=== PATIENT | female | born 1960 | race Caucasian/White ===

== ENCOUNTER → 2016-05-12 | Outpatient (CLI) | payer OTHER ==
--- NOTE | 2016-05-12 13:31 | MR ---
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 There is no hemorrhage or hydrocephalus. The postop changes to the left temporal lobe are again noted, extensive white matter demyelination compatible with leukomalacia , possible post radiation change as well as probable chronic small vessel ischemic changes are stable . Ex vacuo phenomenon of the left lateral ventricle is again noted. The corpus callosum, pituitary, c ervical medullary junction, cerebellopontine angles are stable. The orbits show a symmetric appearanc e. No abnormal enhancement following contrast administration. IMPRESSION: Stable exam, postop and posttreatment changes.
== END | disposition home or self-care (01) ==
LOC: RADMRIMAIN 08:05
DX: C71.2 Malignant neoplasm of temporal lobe (principal); Z98.890 Other specified postprocedural states
CPT/HCPCS: 70553; A9577

== ENCOUNTER 2016-08-13 11:39 | Inpatient (IN) | payer OTHER ==
[2016-08-13] MEDS ORDERED: HYDROmorphone 2 MG/ML 1 ML SYRINGE IVP PRN (13:27)
[2016-08-13] MEDS ORDERED: SODIUM CHLORIDE 0.9% 1,000 ML IV SCH (13:30)
[2016-08-13] MEDS ORDERED: SODIUM CHLORIDE 0.9% 500 ML IV ONE (14:51)
[2016-08-13 14:52] LABS: Basophils % (A) 0 %; CH 32.6; Eosinophils # (A) 0.1 k/uL (0-0.7); Eosinophils % (A) 1 %; HCT 40.8 % (34.0-46.0); HDW 2.32; HGB 13.6 gm/dL (11.4-16.0); Luc # (Auto) 0.16; Luc % (Auto) 2; Lymphocytes # (A) 1.7 k/uL (1.0-4.8); Lymphocytes % (A) 20 %; MCHC 33.3 g/dL (31.0-37.0); MCV 96.3 fL (80.0-100.0); Mean Platelet Volume 7.8; Monocytes # (A) 0.5 k/uL (0-1.0); Monocytes % (A) 6 %; Neutrophils % (A) 71 %; RBC 4.24 m/uL (3.80-5.40); WBC 8.4 k/uL (3.8-10.6); WBC (Perox) 9.06
[2016-08-13 14:53] LABS: INR 1.1 (<1.1); Prothrombin Time 11.3 sec (9.0-12.0)
[2016-08-13 15:01] LABS: ALT 26 U/L (9-52); AST 24 U/L (14-36); Alkaline Phosphatase 68 U/L (38-126); Anion Gap 11 mmol/L; Blood Urea Nitrogen 16 mg/dL (7-17); Calcium 10.1 mg/dL (8.4-10.2); Carbon Dioxide 24 mmol/L (22-30); Chloride 106 mmol/L (98-107); Glucose 106 mg/dL (74-99); Non-African American GFR(MDRD) >60 (>60 ml/min/1.73 sqM); Potassium 4.2 mmol/L (3.5-5.1); Sodium 141 mmol/L (137-145); Total Bilirubin 1.6 mg/dL (0.2-1.3); Total Protein 7.4 g/dL (6.3-8.2)
[2016-08-13] MEDS ORDERED: BACLOFEN 10 MG TAB PO PRN (15:05)
--- NOTE | 2016-08-13 15:11 | XR ---
EXAMINATION TYPE: XR Hip Complete LT DATE OF EXAM: 08/13/2016 12:13 PM CLINICAL HISTORY: Fall injury yesterday with left hip pain. TECHNIQUE: AP and frogleg views of the left hip are obtained. COMPARISON: None. FINDINGS: There is an acute subcapital fracture through proximal left femur with slight impaction of distal fracture fragment. No hip joint dislocation is seen. There is loss of normal spherical shape present in the femoral head. There are scattered left-sided pelvic phleboliths. IMPRESSION: There is acute impacted subcapital fracture left proximal femur. (Initial encounter closed type post traumatic fracture) Results communicated to ordering physician as requested at time of dictation. A Document Only message has been documented for Frederick Brandt MD in the [facility] Result system on 08/13/2016 12:17 PM, Message ID [id number].
[2016-08-13] MEDS: DEXTROSE 5%-0.45% NACL 1,000 ML IV SCH (15:47)
[2016-08-13] MEDS: FAMOTIDINE 20 MG/2 ML VIAL IV SCH ×2 (15:47→21:04)
[2016-08-13 19:16] LABS: Amorphous Sediment,Urine Occasional /hpf; Appearance,Urine Cloudy (Clear); Bacteria,Urine Occasional /hpf; Bilirubin,Urine Negative (Negative); Glucose,Urine (UA) Negative (Negative); Ketones,Urine Negative (Negative); Leukocyte Esterase,Urine Trace (Negative); Mucus,Urine Rare /hpf; Nitrite,Urine Positive (Negative); PH, Urine 6.5 (5.0-8.0); Particle Count 88298; Protein,Urine Negative (Negative); RBC,Urine 2 /hpf (0-5); Specific Gravity,Urine 1.012 (1.001-1.035); UA Billing (MACRO vs. MICRO) MICRO; Urobilinogen,Urine <2.0 mg/dL (<2.0); WBC,Urine 10 /hpf (0-5)
--- NOTE | 2016-08-13 19:37 | XR ---
EXAMINATION TYPE: XR chest 1V DATE OF EXAM: 08/13/2016 7:33 PM COMPARISON: NONE HISTORY: Hip fracture. Preop. TECHNIQUE: Single frontal view of the chest is obtained. FINDINGS: There is no heart failure nor confluent pneumonic infiltrate. There are no hilar masses. C ostophrenic angles are clear. IMPRESSION: No active cardiopulmonary disease.
--- NOTE | 2016-08-13 20:40 | HP ---
DATE OF ADMISSION: 08/13/2016 CHIEF COMPLAINT: Fall with pain in the left hip. HISTORY OF PRESENT ILLNESS: This is the first known admission to this hospital for this 56-year-old white female who was treated in the past for malignant neoplasm of brain. She was treated in 1999 and she has been stable and in remission since. She apparently slipped on some water in her kitchen the night before coming in and presented to the office with pain in the left hip, but she was ambulating. She is a little bit difficult to evaluate because of her previous neoplasm. However, in the office the hip was quite irritable. X-rays and did not rule out with certainty a fracture left hip and she was sent to the hospital for further films where it was determined that she did indeed, have a fracture of that hip and she was admitted. REVIEW OF SYSTEMS: She has had no fever, chills, headache, change in her neurologic status, head injuries, difficulty with vision or hearing, cough, hemoptysis, no chest pain or heart disease, hypertension, abdominal pain, nausea, vomiting, melena, renal disease, hematuria, diabetes, etc. Past medical history, family history, personal and social histories reveals SHE IS ALLERGIC TO TEGRETOL AND DILANTIN. MEDICATIONS: She is on: 1. Requip 0.25 at night. 2. Baclofen 10 mg at night. 3. Lipitor 20 mg once a day. 4. Vitamin D 50,000 units once a week. The only surgery she has had was for glioblastoma in 1999. She has had 4 pregnancies and 4 children. She does not smoke or drink. PHYSICAL EXAMINATION: Blood pressure 100/70, pulse 84, respirations 16. She is afebrile. GENERAL: She appeared to be slightly pale and in no acute distress. Skin was dry and lymph nodes not enlarged. Head, ears, eyes, nose, mouth, and throat were normal. NECK: Neck veins not distended. Carotids normal. CHEST: Clear. CARDIAC: Normal sinus rhythm with no extra sounds. ABDOMEN: Soft and nontender. The left hip was irritable. EXTREMITIES: Otherwise normal. NEUROLOGICAL: Speech was slowed and she had generalized weakness, but she otherwise is intact. IMPRESSION: 1. Fracture of the left hip. 2. Status post surgical removal of the glioblastoma in 1999. 3. Hyperlipidemia. 4. Hypo( ). PLAN: 1. Bed rest. 2. IV fluids. 3. Orthopedic consult.
[2016-08-13] MEDS: HYDROcodone/APAP 5-325MG 1 EACH TAB PO PRN (21:03)
[2016-08-13] MEDS: POLYETHYLENE GLYCOL 3350 17 GM POWD.PACK PO SCH (21:04)
[2016-08-13] MEDS: ONDANSETRON 4 MG/2 ML VIAL IVP PRN (21:04)
[2016-08-14] MEDS: HYDROmorphone 1 MG/ML 1 ML SYRINGE IVP PRN ×2 (05:19→13:45)
[2016-08-14] MEDS: DEXTROSE 5%-0.45% NACL 1,000 ML IV SCH ×2 (05:22→14:09)
[2016-08-14] MEDS ORDERED: ceFAZolin 1,000 MG VIAL ONE (08:12)
[2016-08-14] MEDS ORDERED: LACTATED RINGERS 1,000 ML IV ONE (08:12)
[2016-08-14] MEDS ORDERED: KETAMINE 10 MG/ML 20 ML VIAL ONE (08:12)
[2016-08-14] MEDS ORDERED: MIDAZOLAM 2 MG/2 ML VIAL ONE (08:12)
[2016-08-14] MEDS ORDERED: ceFAZolin 1,000 MG in SODIUM CHLORIDE 0.9% 1,000 ML IRRIGATION ONE (08:35)
[2016-08-14] MEDS ORDERED: SODIUM CHLORIDE 0.9% 100 ML with ceFAZolin 2,000 MG IV ONE ×2 (08:35)
[2016-08-14] MEDS: POLYETHYLENE GLYCOL 3350 17 GM POWD.PACK PO SCH ×2 (09:02→19:53)
[2016-08-14] MEDS: FAMOTIDINE 20 MG/2 ML VIAL IV SCH ×2 (09:02→19:53)
--- NOTE | 2016-08-14 09:15 | CONS ---
DATE OF CONSULTATION: August 13, 2016. REASON FOR CONSULTATION: Left hip fracture. HISTORY: Funmi is a very pleasant 56-year-old female. I visit her at the bedside. Her was present as well. The previous evening on August 12, 2016 around 7:00 in the evening she fell onto her left hip. She did have quite a bit of pain. She did not immediately seek medical attention. She presented to Dr. Brandt's office the next morning the morning of August 13. X-rays were taken in his office. She was found to have a femoral neck fracture and she was then admitted to the hospital. We were consulted for management of her hip fracture. She is resting comfortably. She denies any pain other than the left hip. She is an independent ambulator. She does have a history of cerebral palsy. PAST MEDICAL HISTORY: Cerebral palsy. History of malignant neoplasm of the brain treated in 1999. She has been stable and in remission since. PAST SURGICAL HISTORY: Denies. MEDICATIONS: Include: 1. Requip. 2. Baclofen. 3. Lipitor. 4. Vitamin D. PHYSICAL EXAMINATION: She is afebrile. Vital signs are stable. She is alert and oriented x3. She has no pain with palpation and range of motion of all long bones and joints except for the left hip. The skin over the left hip is normal. No abrasions. She has intact flexion-extension, inversion eversion of the ankle. She has intact flexion-extension of all of her toes and she has intact anterior medial lateral and plantar sensation intact. She has 2+ posterior tibial pulse and brisk capillary refill in all digits. LABORATORIES: Her white count 8.4, hemoglobin is 13.6, platelets 197. Her INR is 1.1. X-rays reveal an impacted, nondisplaced subcapital femoral neck fracture. IMPRESSION: Left impacted subcapital femoral neck fracture. I had a long discussion with Funmi and her with regards to treatment options. She is an independent ambulator. The fracture appears stable. We will plan to go forward with percutaneous screw fixation for her left femoral neck fracture. We did discuss the risks of the procedure. Risks include, but are not limited to risk of infection, nerve damage, bleeding, pain, failure of the fracture to heal, failure of the hardware. There is also a small risk of deep vein thrombosis, which could lead to fatal pulmonary embolism. All of their questions with regards to the procedure were answered to their satisfaction and appropriate informed consent was obtained. I will plan to go forward with operative fixation to release that tomorrow morning on 08/14/2016.
--- NOTE | 2016-08-14 09:27 | XR ---
EXAMINATION TYPE: XR Hip single view Limited LT, FL guidance operating room DATE OF EXAM: 08/14/2016 9:11 AM HISTORY: 56 year-old female left hip nailing. Findings: Radiographs show percutaneous pinning of the left femoral neck with 3 screws. Limited evaluation on t hese fluoroscopic images. FLUOROSCOPY Fluoroscopy time of 1 minute 5 seconds was used during left hip nailing. 2 image/s document/s the pr obeddujackelyn. IMPRESSION: Left hip percutaneous pinning. Fluoroscopy as above.
[2016-08-14] MEDS ORDERED: NALOXONE 0.4 MG/ML 1 ML VIAL IV PRN (09:29)
[2016-08-14 10:47] LABS: Basophils % (A) 0 %; CH 32.2; CHCM 33.3; Eosinophils # (A) 0.1 k/uL (0-0.7); Eosinophils % (A) 2 %; HCT 36.3 % (34.0-46.0); HDW 2.34; HGB 12.2 gm/dL (11.4-16.0); Luc % (Auto) 2; Lymphocytes # (A) 1.6 k/uL (1.0-4.8); Lymphocytes % (A) 25 %; MCH 32.7 pg (25.0-35.0); MCHC 33.7 g/dL (31.0-37.0); MCV 97.1 fL (80.0-100.0); Mean Platelet Volume 7.6; Monocytes # (A) 0.3 k/uL (0-1.0); Monocytes % (A) 5 %; Neutrophils # (A) 4.1 k/uL (1.3-7.7); Neutrophils % (A) 66 %; RBC 3.74 m/uL (3.80-5.40); WBC 6.2 k/uL (3.8-10.6)
[2016-08-14] MEDS: HYDROcodone/APAP 5-325MG 1 EACH TAB PO PRN ×2 (13:24→19:52)
[2016-08-14] MEDS: ceFAZolin 2 GM in SODIUM CHLORIDE 0.9% 100 ML IVPB SCH (15:31)
[2016-08-14 16:06] LABS: INR 1.1 (<1.1)
[2016-08-14] MEDS ORDERED: WARFARIN 5 MG TAB PO ONE (18:00)
--- NOTE | 2016-08-14 18:30 | OP ---
DATE OF SERVICE: August 14, 2016 SURGEON: MAR TRIPLETT MD ASSOCIATE ATTORNEY: PREOPERATIVE DIAGNOSIS: Left nondisplaced femoral neck fracture. POSTOPERATIVE DIAGNOSIS: Left nondisplaced femoral neck fracture. OPERATION: Percutaneous screw fixation for left femoral neck fracture. ANESTHESIA: Spinal with sedation. ESTIMATED BLOOD LOSS: 25 mL. SPECIMENS REMOVED: COMPLICATIONS: None apparent. DRAINS: None. DISPOSITION: Postanesthesia care unit. SPECIMENS REMOVED: OPERATIVE FINDINGS: INDICATIONS: Funmi is a very pleasant 56-year-old female who tripped and fell on the evening of August 12 and sustained a nondisplaced left femoral neck fracture. We were consulted for care. She is an independent ambulator at home. She lives with her . Recommendation was for percutaneous screw fixation for her left femoral neck fracture. The risks were discussed with Funmi and her . The risks include but limited to risk of infection, nerve damage, bleeding, pain, and a small risk of deep vein thrombosis, which could lead to fatal pulmonary embolism. Further risks include possibility for displacement, further displacement of the fracture, screw cut out and nonunion. All of these complications if they were to happen could result in the need for further operative intervention. All of Funmi and her 's questions were answered to their satisfaction and appropriate informed consent was obtained. DESCRIPTION OF THE PROCEDURE: The patient was identified in the preoperative holding area. Surgical site was marked by both the patient and myself. She was given 2 grams of Ancef IV for prophylactic purposes. She was then transferred to the operative suite where she was placed supine on the operating room table. Spinal anesthetic was then administered and dosed per the anesthesia department without apparent complication. She was then placed onto the fracture table, well-padded in preparation for surgery. The fluoroscopy was then brought in to confirm that the femoral neck fracture remained nondisplaced and it was. The patient's left lower extremity was then prepped and draped in the usual sterile fashion. Standard surgical pause was then undertaken to ensure that we were operating on correct site and that appropriate preoperative antibiotics had been given. All staff in the room were in agreement and we proceeded. The fluoroscopy was brought in. A pin was utilized to identify the area of the skin incision on the proximal lateral femur. Incision was then made with a 10 blade scalpel. Carried down sharply to the tensor fashion. Tensor fascia was incised in line with the skin incision. The first partial threaded guide pin was placed on the center of the femoral head along the inferior femoral neck. I then placed 2 threaded guide pins, one anterior/superior and one posterior superior to the original pin. All 3 pins were placed under fluoroscopic guidance. There was excellent spread. The anterior and posterior pins were right up against the anterior and posterior cortex of the femoral neck and the inferior pin was along the inferior cortex of the femoral neck. All 3 were placed deep into the femoral head. This was confirmed on both AP and lateral fluoroscopic images. The pins were then measured for length for the screws. I utilized all 3 screws were Jazmin 7.0 Magna fix partially-threaded cannulated screws. I utilized a washer for all 3 screws as well. The inferior screw was a 90 mm screw and the two anterior/superior and posterior superior screws were 80 mm screws. All 3 screws had excellent purchase in the femoral head. This compressed the fracture nicely. Fluoroscopy confirmed their placement. They did not penetrate into the articular surface of the hip joint. At this point, no further work was deemed necessary. The threaded guide pins were removed. Final fluoroscopic images were taken. The wound was then thoroughly irrigated with sterile saline solution with antibiotic added. The tensor fascia was closed with 0-Vicryl interrupted suture. The subcutaneous tissue was closed with 2-0 Vicryl interrupted suture and the skin was closed with stainless steel moni. Sterile compressive dressings were then applied. All sponge and needle counts were deemed correct prior to closure. The patient tolerated the procedure without apparent complication. She was transferred to recovery room in stable condition.
[2016-08-15] MEDS: ceFAZolin 2 GM in SODIUM CHLORIDE 0.9% 100 ML IVPB SCH (00:43)
[2016-08-15] MEDS: DEXTROSE 5%-0.45% NACL 1,000 ML IV SCH ×3 (00:45→20:03)
[2016-08-15] MEDS: HYDROmorphone 1 MG/ML 1 ML SYRINGE IVP PRN ×4 (00:50→19:54)
[2016-08-15 07:26] LABS: INR 1.2 (<1.1); Prothrombin Time 12.1 sec (9.0-12.0)
--- NOTE | 2016-08-15 09:27 | P.PN ---
Subjective Principal diagnosis: Left Hip fracture This is a 56-year-old female who is status post percutaneous screw fixation of the left hip. Today is postoperative day #1. The patient is seen and evaluated at bedside. Her pain is under fair control this time. She is nonweightbearing. She's not yet been up to bedside chair. She has no additional complaints at this time. Objective - Vital Signs Vital signs: Vital Signs Temp 97.8 F 08/15/16 08:17 Pulse 99 08/15/16 08:17 Resp 18 08/15/16 08:17 BP 123/65 08/15/16 08:17 Pulse Ox 99 08/15/16 08:17 Intake & Output 08/14/16 08/15/16 08/15/16 18:59 06:59 18:59 Intake Total 1001 1150 Output Total 1175 1400 Balance -174 -250 Intake: IV 701 450 ceFAZolin 2 gm In Sodium 100 450 Chloride 0.9% 100 ml @ 100 mls/hr IVPB Q8HR LUL Rx#:[id number] Intake, IV Titration 300 700 Amount Dextrose 5%-0.45% NaCl 1, 300 700 000 ml @ 100 mls/hr IV . Q10H LUL Rx#:[id number] Output: Urine 1150 1400 Estimated Blood Loss 25 Other: Voiding Method Indwelling Catheter Indwelling Catheter Indwelling Catheter - Exam The patient does not appear in acute distress. Alert and orientated 3. Dressing is clean dry and intact. Incision appears fine with no erythema or active drainage. Calf is soft and nontender. She is able to perform dorsiflexion plantar flexion and but motion is somewhat limited. Sensation and circulatory status is intact. - Labs CBC & Chem 7: 08/14/16 10:32 08/13/16 14:21 Labs: Abnormal Lab Results - Last 24 Hours (Table) 08/14/16 08/15/16 Range/Units 10:32 06:53 RBC 3.74 L (3.80-5.40) m/uL PT 12.1 H (9.0-12.0) sec Assessment and Plan (1) Nondisplaced fracture of neck of femur Status: Acute Plan: Continue with nonweightbearing left lower extremity. Anticoagulation as directed by Dr. Brandt. Continue pain control. Anticipate 3-4 day hospital stay with subacute rehab upon discharge to [facility].
[2016-08-15] MEDS: POLYETHYLENE GLYCOL 3350 17 GM POWD.PACK PO SCH ×2 (10:00→20:05)
[2016-08-15] MEDS: FAMOTIDINE 20 MG/2 ML VIAL IV SCH ×2 (10:00→20:05)
[2016-08-15] MEDS: HYDROcodone/APAP 5-325MG 1 EACH TAB PO PRN ×3 (10:08→22:49)
[2016-08-15] MEDS ORDERED: WARFARIN 5 MG TAB PO ONE (18:00)
--- NOTE | 2016-08-15 18:40 | PN ---
CHIEF COMPLAINT: Fracture of left hip. HISTORY OF PRESENT ILLNESS: This lady is going to the operating room today and she is doing well. PHYSICAL EXAM: Chest is clear. Cardiac is normal. Abdomen is soft and nontender. IMPRESSION: 1. Status post left open reduction and internal fixation. 2. History of glioblastoma. PLAN: Continue to follow with Surgery.
[2016-08-16] MEDS: HYDROmorphone 1 MG/ML 1 ML SYRINGE IVP PRN ×3 (02:00→14:49)
[2016-08-16] MEDS: HYDROcodone/APAP 5-325MG 1 EACH TAB PO PRN ×3 (05:26→21:15)
[2016-08-16] MEDS: DEXTROSE 5%-0.45% NACL 1,000 ML IV SCH ×3 (07:06→21:15)
[2016-08-16 07:58] LABS: Basophils % (A) 1 %; CH 31.8; CHCM 33.6; Eosinophils # (A) 0.2 k/uL (0-0.7); Eosinophils % (A) 3 %; HDW 2.47; HGB 12.5 gm/dL (11.4-16.0); Luc # (Auto) 0.15; Luc % (Auto) 3; Lymphocytes # (A) 1.4 k/uL (1.0-4.8); Lymphocytes % (A) 24 %; MCHC 33.7 g/dL (31.0-37.0); Mean Platelet Volume 7.1; Monocytes # (A) 0.6 k/uL (0-1.0); Monocytes % (A) 10 %; Neutrophils # (A) 3.5 k/uL (1.3-7.7); Neutrophils % (A) 60 %; RBC 3.89 m/uL (3.80-5.40); RDW 12.4 % (11.5-15.5); WBC 5.8 k/uL (3.8-10.6)
[2016-08-16] MEDS: POLYETHYLENE GLYCOL 3350 17 GM POWD.PACK PO SCH ×2 (07:58→21:16)
[2016-08-16] MEDS: FAMOTIDINE 20 MG/2 ML VIAL IV SCH ×2 (07:58→21:16)
[2016-08-16] MEDS: ONDANSETRON 4 MG/2 ML VIAL IVP PRN (08:56)
--- NOTE | 2016-08-16 15:03 | P.PN ---
Subjective 56-year-old female sitting up in bed. Patient reports pain medication effective for pain control. This is a female who tripped and fell on the evening of the abstain a nondisplaced left femoral neck fracture. Patient 's been followed by orthopedic service. on August 14 did undergo a left percutaneous screw fixation for the femoral neck fracture Objective - Vital Signs Vital signs: Vital Signs Temp 96.2 F L 08/16/16 07:17 Pulse 105 H 08/16/16 08:00 Resp 18 08/16/16 08:00 BP 115/57 08/16/16 07:17 Pulse Ox 100 08/16/16 07:17 Intake & Output 08/15/16 08/16/16 08/16/16 18:59 06:59 18:59 Intake Total 800 1040 756 Output Total 1900 1850 800 Balance -1100 -810 -44 Weight 55.5 kg Intake: IV 100 ceFAZolin 2 gm In Sodium 100 Chloride 0.9% 100 ml @ 100 mls/hr IVPB Q8HR LUL Rx#:[id number] Intake, IV Titration 700 800 756 Amount Dextrose 5%-0.45% NaCl 1, 700 800 756 000 ml @ 100 mls/hr IV . Q10H LUL Rx#:[id number] Oral 240 Output: Urine 1900 1850 800 Other: Voiding Method Indwelling Catheter Indwelling Catheter Indwelling Catheter - Exam Physical exam 56-year-old female sitting up in bed taking a diet appears in no acute distress states pain medicine effective for pain control Lungs essentially clear adequate air movement Heart S1-S2 audible regular Abdomen soft nontender Extremities dressing left hip with ice and place dressings dry no edema - Labs CBC & Chem 7: 08/16/16 07:18 08/13/16 14:21 Assessment and Plan Plan: Impression A fall from a standing position resulting in a nondisplaced fracture of neck left femur A history of a malignant neoplasm of the brain 1999 in remission Status post surgical removal of glioblaastoma in 1999 Hyperlipidemia Plan Continue postop surgical care per orthopedic service Anticoagulation monitoring INR PT OT Discharge plan [facility] subacute rehab when orthopedic stable Pain control DVT and GI prophylaxis The above dictated assessment and findings were discussed with dr cartwright . Impression and the plan of care have been dictated as directed. Marilin Garcia nurse practitioner acting as a scribe for dr cartwright
--- NOTE | 2016-08-16 17:14 | P.PN ---
Subjective Principal diagnosis: Left Hip fracture This is a 56-year-old female who is status post percutaneous screw fixation of the left hip. She is seen at bedside this afternoon. Today is postoperative day #2. Her pain is under control at this time. She is nonweightbearing. She's not yet been up to bedside chair. She has no additional complaints at this time. She denies new numbness or tingling. She has no calf pain, fever, chills chest pain or SOB. Objective - Vital Signs Vital signs: Vital Signs Temp 98.4 F 08/16/16 15:14 Pulse 73 08/16/16 15:58 Resp 18 08/16/16 15:58 BP 105/55 08/16/16 15:14 Pulse Ox 98 08/16/16 15:14 Intake & Output 08/15/16 08/16/16 08/16/16 18:59 06:59 18:59 Intake Total 800 1040 756 Output Total 1900 1850 800 Balance -1100 -810 -44 Weight 55.5 kg Intake: IV 100 ceFAZolin 2 gm In Sodium 100 Chloride 0.9% 100 ml @ 100 mls/hr IVPB Q8HR LUL Rx#:[id number] Intake, IV Titration 700 800 756 Amount Dextrose 5%-0.45% NaCl 1, 700 800 756 000 ml @ 100 mls/hr IV . Q10H LUL Rx#:[id number] Oral 240 Output: Urine 1900 1850 800 Other: Voiding Method Indwelling Catheter Indwelling Catheter Bedside Commode Indwelling Catheter # Voids 2 - Exam Benign surgical wound. No bleeding or drainage. NVI throughout left lower extremity. Active motor at knee, ankle and foot. Sensation intact. Calf soft and nontender. 2+ dorsalis pedis pulses and less than 2 sec cap refill. - Constitutional General appearance: Present: no acute distress - Psychiatric Psychiatric: Present: A&O x's 3, appropriate affect, intact judgment & insight - Labs CBC & Chem 7: 08/16/16 07:18 08/13/16 14:21 Labs: Abnormal Lab Results - Last 24 Hours (Table) 08/16/16 Range/Units 15:34 PT 19.0 H (9.0-12.0) sec Assessment and Plan (1) Hip fracture Narrative/Plan: Continue with nonweightbearing left lower extremity. Anticoagulation as directed by Dr. Brandt. Continue pain control and wound care. Expect transfer to subacute rehab in next one to two days to [facility]. Status: Acute Time with Patient: Less than 30
[2016-08-16] MEDS: WARFARIN 2.5 MG TAB PO SCH (17:20)
--- NOTE | 2016-08-16 21:35 | PN ---
DATE OF SERVICE: 08/16/2016 CHIEF COMPLAINT: Fracture of the left hip. HISTORY OF PRESENT ILLNESS: This lady is doing fairly well. Postop. She is not having a lot of pain. She has had no fevers or chills. PHYSICAL EXAMINATION: She is slightly pale. CHEST: Chest clear. CARDIAC: Normal. ABDOMEN: Soft, nontender. IMPRESSION: 1. Status post left hip fracture. 2. Status post glioblastoma. PLAN: Physical therapy as well as OT and work on a discharge plan.
[2016-08-17] MEDS: POLYETHYLENE GLYCOL 3350 17 GM POWD.PACK PO SCH ×2 (07:28→21:35)
[2016-08-17] MEDS: FAMOTIDINE 20 MG/2 ML VIAL IV SCH (07:28)
[2016-08-17] MEDS: DEXTROSE 5%-0.45% NACL 1,000 ML IV SCH ×2 (07:29→16:51)
[2016-08-17 08:34] LABS: INR 2.4 (<1.1); Prothrombin Time 23.1 sec (9.0-12.0)
--- NOTE | 2016-08-17 09:53 | P.PN ---
Subjective 56-year-old female sitting up in bed taking a diet spouse at bedside. Patient is postop percutaneous screw fixation of the right hip secondary to a left femur fracture after patient sustained a fall from a standing position. no new events. Patient's been afebrile. The discharge plan is in progress patients being referred to returned case inspector to go to subacute rehab when medically stable INR 2.4 this morning Objective - Vital Signs Vital signs: Vital Signs Temp 98.4 F 08/17/16 07:38 Pulse 73 08/17/16 08:00 Resp 18 08/17/16 08:00 BP 118/59 08/17/16 07:38 Pulse Ox 98 08/17/16 07:38 Intake & Output 08/16/16 08/17/16 08/17/16 18:59 06:59 18:59 Intake Total 756 940 Output Total 800 Balance -44 940 Weight 55.5 kg Intake: Intake, IV Titration 756 700 Amount Dextrose 5%-0.45% NaCl 1, 756 700 000 ml @ 100 mls/hr IV . Q10H LUL Rx#:[id number] Oral 240 Output: Urine 800 Other: Voiding Method Bedside Commode Bedside Commode Bedside Commode Indwelling Catheter # Voids 1 2 1 - Exam Physical exam 56-year-old female sitting up in bed taking a diet appears in no acute distress states pain medicine effective for pain control spouse at bedside Lungs essentially clear adequate air movement Heart S1-S2 audible regular Abdomen soft nontender Extremities dressing left hip with ice dressings dry no edema - Labs CBC & Chem 7: 08/16/16 07:18 08/13/16 14:21 Labs: Abnormal Lab Results - Last 24 Hours (Table) 08/16/16 08/17/16 Range/Units 15:34 07:56 PT 19.0 H 23.1 H (9.0-12.0) sec Assessment and Plan Plan: Impression A fall from a standing position resulting in a nondisplaced fracture of neck left femur A history of a malignant neoplasm of the brain 1999 in remission Status post surgical removal of glioblaastoma in 1999 Hyperlipidemia Plan Continue postop surgical care per orthopedic service Anticoagulation monitoring INR PT OT Discharge plan [facility] subacute rehab when orthopedic stable Pain control DVT and GI prophylaxis The above dictated assessment and findings were discussed with dr cartwright . Impression and the plan of care have been dictated as directed. Marilin Garcia nurse practitioner acting as a scribe for dr cartwright
[2016-08-17] MEDS: HYDROcodone/APAP 5-325MG 1 EACH TAB PO PRN ×2 (11:01→16:49)
[2016-08-17 11:11] VITALS: BMI 20.9
--- NOTE | 2016-08-17 12:30 | P.PN ---
Subjective Principal diagnosis: Left Hip fracture This is a 56-year-old female who is status post percutaneous screw fixation of the left hip. She is seen at bedside this morning. Today is postoperative day # 3. Her pain is under control at this time. She is nonweightbearing. She has no newl complaints at this time. She denies new numbness or tingling. She has no calf pain, fever, chills chest pain or SOB. Objective - Vital Signs Vital signs: Vital Signs Temp 98.4 F 08/17/16 07:38 Pulse 73 08/17/16 08:00 Resp 18 08/17/16 08:00 BP 118/59 08/17/16 07:38 Pulse Ox 98 08/17/16 07:38 Intake & Output 08/16/16 08/17/16 08/17/16 18:59 06:59 18:59 Intake Total 756 940 Output Total 800 Balance -44 940 Weight 55.5 kg 55.5 kg Intake: Intake, IV Titration 756 700 Amount Dextrose 5%-0.45% NaCl 1, 756 700 000 ml @ 100 mls/hr IV . Q10H LUL Rx#:[id number] Oral 240 Output: Urine 800 Other: Voiding Method Bedside Commode Bedside Commode Bedside Commode Indwelling Catheter # Voids 1 2 1 - Exam Benign surgical wound. No bleeding or drainage. NVI throughout left lower extremity. Active motor at knee, ankle and foot. Sensation intact. Calf soft and nontender. 2+ dorsalis pedis pulses and less than 2 sec cap refill. - Constitutional General appearance: Present: no acute distress - Psychiatric Psychiatric: Present: A&O x's 3, appropriate affect, intact judgment & insight - Labs CBC & Chem 7: 08/16/16 07:18 08/13/16 14:21 Labs: Abnormal Lab Results - Last 24 Hours (Table) 08/16/16 08/17/16 Range/Units 15:34 07:56 PT 19.0 H 23.1 H (9.0-12.0) sec Assessment and Plan (1) Hip fracture Narrative/Plan: Continue with nonweightbearing left lower extremity. Anticoagulation as directed by Dr. Brandt. Continue pain control and wound care. She may be transferred to [facility] from an orthopedic standpoint. She is to f/u with Dr. Villagran in office in 2 weeks. Status: Acute Time with Patient: Less than 30
--- NOTE | 2016-08-17 15:58 | PN ---
DATE OF SERVICE: 08/17/2016 Funmi is postoperative day number 3, status post left percutaneous screw fixation for a left femoral neck fracture. She is resting comfortably. She is in the hospital still, as she is awaiting placement to a subacute rehab facility. She is otherwise doing quite well. Pain in her hip is controlled fairly well. She is having no real complaints at this time. PHYSICAL EXAMINATION: The incision is healing very nicely. There is no drainage on the dressing. It is dry. There is no evidence of infection or postoperative hematoma. Her neurovascular exam distally is unchanged from preoperatively and is intact. IMPRESSION: Postoperative day number 3, status post percutaneous screw fixation for left femoral neck fracture. RECOMMENDATIONS: Funmi is doing quite well in the early postoperative period. We will continue her [id number] on left lower extremity. She is going to be going to a subacute rehab facility. I will see her back in the office in 2 weeks for followup. All of Funmi's questions were answered to her satisfaction.
[2016-08-17] MEDS: WARFARIN 2.5 MG TAB PO SCH (16:49)
[2016-08-17] MEDS: FAMOTIDINE 20 MG TAB PO SCH (21:35)
[2016-08-17 23:08] VITALS: RESP 16; TEMP 98.6
[2016-08-18] MEDS: DEXTROSE 5%-0.45% NACL 1,000 ML IV SCH (05:45)
--- NOTE | 2016-08-18 06:09 | PN ---
DATE OF SERVICE: 08/16/2016 CHIEF COMPLAINT: Left hip fracture. HISTORY OF PRESENT ILLNESS: This lady is doing well. She is not having a great deal pain. We are working on a discharge plan. PHYSICAL EXAM: She remains slightly pale. Chest is clear. Cardiac exam is normal. ABDOMEN: Soft, nontender. Dressing is dry. IMPRESSIONS: 1. Status post left ORIF. 2. Status post brain tumor. PLAN: Continue postoperative management and we will work on rehab as an inpatient.
--- NOTE | 2016-08-18 06:28 | PN ---
DATE OF SERVICE: 08/17/2016 CHIEF COMPLAINT: Left hip fracture. HISTORY OF PRESENT ILLNESS: This lady is doing fairly well and there has been no interval change. She is going to a care home once she is cleared by Orthopedics. PHYSICAL EXAM: Chest is clear. Cardiac exam is normal. ABDOMEN: Soft, nontender. IMPRESSION: Status post ORIF of the left hip. PLAN: Continue with physical therapy.
[2016-08-18 08:20] VITALS: BP 118/72; PULSE 77
[2016-08-18] MEDS ORDERED: ERGOCALCIFEROL 50,000 UNIT CAP PO SCH (09:00)
[2016-08-18] MEDS: POLYETHYLENE GLYCOL 3350 17 GM POWD.PACK PO SCH (09:17)
[2016-08-18] MEDS: FAMOTIDINE 20 MG TAB PO SCH (09:18)
--- NOTE | 2016-08-18 10:15 | P.PN ---
Subjective Principal diagnosis: Left Hip fracture This is a 56-year-old female who is status post percutaneous screw fixation of the left hip. She is seen at bedside this morning. Today is postoperative day # 4. Her pain is under control at this time. She is nonweightbearing. She has no new complaints at this time. She denies new numbness or tingling. She has no calf pain, fever, chills, abdominal pain, chest pain or SOB. Objective - Vital Signs Vital signs: Vital Signs Temp 98.6 F 08/18/16 07:00 Pulse 77 08/18/16 07:00 Resp 16 08/18/16 07:00 BP 118/72 08/18/16 07:00 Pulse Ox 99 08/18/16 07:00 Intake & Output 08/17/16 08/18/16 08/18/16 18:59 06:59 18:59 Intake Total 100 1050 Balance 100 1050 Weight 55.5 kg Intake: Intake, IV Titration 100 1050 Amount Dextrose 5%-0.45% NaCl 1, 1050 000 ml @ 100 mls/hr IV . Q10H [facility] Rx#:[id number] Sodium Chloride 0.9% 100 100 ml As IV .STK-MED ONE with ceFAZolin 2,000 mg Rx#:[id number] Other: Voiding Method Bedside Commode Bedside Commode Bedside Commode # Voids 3 2 2 # Bowel Movements 1 2 - Exam Benign surgical wound. No bleeding or drainage. NVI throughout left lower extremity. Active motor at knee, ankle and foot. Sensation intact. Calf soft and nontender. 2+ dorsalis pedis pulses and less than 2 sec cap refill. - Constitutional General appearance: Present: no acute distress - Psychiatric Psychiatric: Present: A&O x's 3, appropriate affect, intact judgment & insight - Labs CBC & Chem 7: 08/16/16 07:18 08/13/16 14:21 Assessment and Plan (1) Hip fracture Narrative/Plan: Continue with nonweightbearing left lower extremity. Anticoagulation as directed by Dr. Brandt. Continue pain control and wound care. She may be transferred to [facility] from an orthopedic standpoint. She is to f/u with Dr. Villagran in office in 2 weeks. Status: Acute Time with Patient: Less than 30
--- NOTE | 2016-08-18 10:29 | P.PN ---
Subjective 56-year-old female being seen on rounds. It takes the assist of 2 to transfer patient from bed to bedside commode. Patient did have a bowel movement was sitting up on the bedside mode. Patients being followed by orthopedic service. Patient's postop percutaneous screw fixation involving the left hip postop day 4. Patient states pain medication effective for pain control. Objective - Vital Signs Vital signs: Vital Signs Temp 98.6 F 08/18/16 07:00 Pulse 77 08/18/16 07:00 Resp 16 08/18/16 07:00 BP 118/72 08/18/16 07:00 Pulse Ox 99 08/18/16 07:00 Intake & Output 08/17/16 08/18/16 08/18/16 18:59 06:59 18:59 Intake Total 100 1050 Balance 100 1050 Weight 55.5 kg Intake: Intake, IV Titration 100 1050 Amount Dextrose 5%-0.45% NaCl 1, 1050 000 ml @ 100 mls/hr IV . Q10H [facility] Rx#:[id number] Sodium Chloride 0.9% 100 100 ml As IV .STK-MED ONE with ceFAZolin 2,000 mg Rx#:[id number] Other: Voiding Method Bedside Commode Bedside Commode Bedside Commode # Voids 3 2 2 # Bowel Movements 1 2 - Exam Physical exam 56-year-old female sitting up in bed taking a diet appears in no acute distress states pain medicine effective for pain control spouse at bedside Lungs essentially clear adequate air movement Heart S1-S2 audible regular Abdomen soft nontender Extremities dressing left hip with ice dressings dry no edema - Labs CBC & Chem 7: 08/16/16 07:18 08/13/16 14:21 Assessment and Plan Plan: Impression A fall from a standing position resulting in a nondisplaced fracture of neck left femur A history of a malignant neoplasm 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 Impression and the plan of care have been dictated as directed. Marilin Garcia nurse practitioner acting as a scribe for dr cartwright
--- NOTE | 2016-08-18 12:52 | P.DS ---
Providers Date of admission: 08/13/16 12:40 Expected date of discharge: 08/18/16 Attending physician: Frederick Cartwright Consults: 08/13/16 13:02 Consult Physician Routine Consulting Provider: Janes Villagran Consult Reason/Comments: left hip fracture Do you want consulting provider notified?: Already Contacted Primary care physician: Frederick Cartwright Hospital Course: 56-year-old female presented with left hip pain after sustaining a fall at home. Patient stated that she tripped and fell from a standing position landing on the left hip. Patient was admitted to the services of the attending. orthopedic consultation was requested for the left nondisplaced femoral neck fracture. Recommendations were to proceed on August 14 with the percutaneous screw fixation for the left humeral neck fracture patient elected to proceed. Patient was seen throughout the hospitalization by orthopedic service. 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 Impression and the plan of care have been dictated as directed. Marilin Garcia nurse practitioner acting as a scribe for dr cartwright Plan - Discharge Summary New Discharge Prescriptions: HYDROcodone/APAP 5-325MG [Weston 5-325] 1 each PO Q6HR PRN #30 tab PRN Reason: Pain Warfarin [Coumadin] 2.5 mg PO 1630 #30 tab rOPINIRole HCL [Requip] 0.25 mg PO HS #30 tab Discharge Medication List Ergocalciferol (Vitamin D2) [Vitamin D2] 50,000 unit PO Q30D 08/13/16 [History] Baclofen [Lioresal] 10 mg PO HS PRN #0 tab 08/18/16 [Rx] Ergocalciferol [Vitamin D2 (DRISDOL)] 50,000 unit PO QMONTH cap 08/18/16 [Rx] HYDROcodone/APAP 5-325MG [[place]on 5-325] 1 each PO Q6HR PRN #30 tab 08/18/16 [Rx] Polyethylene Glycol 3350 [Miralax] 17 gm PO BID powd.pack 04/12/17 [Rx] Warfarin [Coumadin] 2.5 mg PO 1630 #30 tab 08/18/16 [Rx] rOPINIRole HCL [Requip] 0.25 mg PO HS #30 tab 08/18/16 [Rx] Follow up Appointment(s)/Referral(s): Janes Villagran MD [STAFF PHYSICIAN] - 2 Weeks Frederick Cartwright MD [Primary Care Provider] - 1 Week Ambulatory/Diagnostic Orders: Prothrombin Time INR [LAB.AMB] Time Frame: 08/23/16, Location: Determined By Patient Activity/Diet/Wound Care/Special Instructions: Non weightbearing left lower extremity Keep wound clean and dry May shower in 48 hrs F/U with Dr. Villagran in office, [phone] Discharge Disposition: TRANSFER TO SNF/ECF
[2016-08-18 15:03] LABS: INR 1.6 (<1.1); Prothrombin Time 15.3 sec (9.0-12.0)
--- NOTE | 2016-08-18 17:43 | PN ---
CHIEF COMPLAINT: Fracture left hip. HISTORY OF PRESENT ILLNESS: This lady is doing well and will probably be going to a senior living today. PHYSICAL EXAMINATION: She remains pale. CHEST: Clear. CARDIAC: Normal. ABDOMEN: Soft and nontender. IMPRESSION: 1. Status post left hip. 2. Status post glioblastoma. PLAN: Probably moved to the senior living today and this will be arranged by the nurse practitioner.
[2016-09-06] MEDS ORDERED: ERGOCALCIFEROL 50,000 UNIT CAP PO SCH (09:00)
== END 2016-08-18 15:30 | DRG 482 ==
LOC: RADXRMAIN 11:39 → 5MS5E 12:40
PROVIDERS: ADMIT Family Medicine; ATTEND Family Medicine
PROC: 0QH734Z Insertion of Internal Fixation Device into Left Upper Femur, Percutaneous Approach (ICD-10-PCS; principal; 2016-08-14 08:00)
DX: S72.012A Unspecified intracapsular fracture of left femur, initial encounter for closed fracture (principal); E78.5 Hyperlipidemia, unspecified; W01.0XXA Fall on same level from slipping, tripping and stumbling without subsequent striking against object, initial encounter; Y92.009 Unspecified place in unspecified non-institutional (private) residence as the place of occurrence of the external cause; G80.9 Cerebral palsy, unspecified; Z85.841 Personal history of malignant neoplasm of brain; Z88.8 Allergy status to other drugs, medicaments and biological substances; Z79.899 Other long term (current) drug therapy
CPT/HCPCS: 71010; 73501; 73502; 80053; 81001; 85025; 85610; 93005

== ENCOUNTER → 2016-10-19 | Outpatient (CLI) | payer OTHER ==
--- NOTE | 2016-10-19 17:11 | BD ---
EXAMINATION TYPE: MG DEXA axial skeleton. DATE OF EXAM: 10/19/2016 COMPARISON: NONE CLINICAL HISTORY: postmenopausal Height: 5'4 Weight: 125 FRAX RISK QUESTIONS: Alcohol (3 or more units per day): no Family History (Parent hip fracture): no Glucocorticoids (More than 3mos): no (Ex: prednisone, prednisolone, methylprednisolone, dexamethasone, and hydrocortisone). History of Fracture in Adulthood: yes Secondary Osteoporosis: 1. Type 1 Diabetes: no 2. Hyperthyroidism: no 3. Menopause before 45: no 4. Malnutrition: no 5. Chronic liver disease: no Rheumatoid Arthritis: no Current Tobacco Use: no RISK FACTORS HISTORY OF: Hip Fracture (Left): When: age 56 Surgery to Hip(left)/): When: age 56 Other Fractures since Age 48: When: age 56 Active: Postmenopausal woman: Frequent falls: Poor Health: MEDICATIONS: Additional Medications: brain cancer 1999, Additional History: pt in wheel chair EXAM MEASUREMENTS: Bone mineral densitometry was performed using the [employer] System. Bone mineral density as measured about the Lumbar spine is: ----- L1-L4(G/cm2): 0.824 T Score Values are as follows: ----- L2: -3.0 ----- L3: -2.7 ----- L4: -3.9 ----- L1-L4: -3.0 Bone mineral density about the R hip (g/cm2): 0.588 T Score values are as follows: -----R Neck: -3.2 -----R Total: -3.5 IMPRESSION: Osteoporosis (T Score less than -2.5) as noted by T Score values at theL1-L4, rt hip There is increased fracture risk and therapy is usually indicated based on age. Re-Screen 1-2 years. NOTE: T-SCORE=SD OF THE YOUNG ADULT MEAN.
== END | disposition home or self-care (01) ==
LOC: RADBDWWP 08:02
PROVIDERS: ATTEND Family Medicine
DX: M81.8 Other osteoporosis without current pathological fracture (principal); Z78.0 Asymptomatic menopausal state; Z88.8 Allergy status to other drugs, medicaments and biological substances
CPT/HCPCS: 77080

== ENCOUNTER → 2017-02-16 | Outpatient (CLI) | payer OTHER ==
[2017-02-16 12:08] LABS: Basophils % (A) 1 %; CH 31.9; CHCM 32.5; Eosinophils # (A) 0.1 k/uL (0-0.7); Eosinophils % (A) 2 %; HCT 41.7 % (34.0-46.0); HDW 2.33; HGB 13.5 gm/dL (11.4-16.0); Luc # (Auto) 0.13; Luc % (Auto) 3; Lymphocytes # (A) 1.8 k/uL (1.0-4.8); Lymphocytes % (A) 39 %; MCH 31.9 pg (25.0-35.0); MCHC 32.4 g/dL (31.0-37.0); MCV 98.3 fL (80.0-100.0); Mean Platelet Volume 7.7; Monocytes # (A) 0.3 k/uL (0-1.0); Monocytes % (A) 7 %; Neutrophils # (A) 2.2 k/uL (1.3-7.7); Neutrophils % (A) 49 %; RBC 4.24 m/uL (3.80-5.40); RDW 12.8 % (11.5-15.5); WBC 4.5 k/uL (3.8-10.6)
[2017-02-16 12:25] LABS: ALT 27 U/L (9-52); AST 20 U/L (14-36); Alkaline Phosphatase 71 U/L (38-126); Anion Gap 11 mmol/L; Blood Urea Nitrogen 18 mg/dL (7-17); Calcium 9.5 mg/dL (8.4-10.2); Carbon Dioxide 25 mmol/L (22-30); Chloride 106 mmol/L (98-107); Cholesterol 209 mg/dL (<200); Glucose 79 mg/dL (74-99); HDL Cholesterol 42 mg/dL (40-60); Non-African American GFR(MDRD) >60 (>60 ml/min/1.73 sqM); Potassium 4.6 mmol/L (3.5-5.1); Sodium 142 mmol/L (137-145); Total Bilirubin 0.5 mg/dL (0.2-1.3); Total Protein 6.8 g/dL (6.3-8.2)
== END | disposition home or self-care (01) ==
LOC: LABWHC1 11:11
PROVIDERS: ATTEND Family Medicine
DX: E78.5 Hyperlipidemia, unspecified (principal); E55.9 Vitamin D deficiency, unspecified; R53.81 Other malaise; Z13.220 Encounter for screening for lipoid disorders
CPT/HCPCS: 36415; 80053; 80061; 82306; 84439; 84443; 85025

== ENCOUNTER 2017-09-29 20:34 | Inpatient (IN) | payer OTHER ==
[2017-09-29] MEDS ORDERED: ONDANSETRON 4 MG/2 ML VIAL IVP STA (21:01)
[2017-09-29] MEDS ORDERED: SODIUM CHLORIDE 0.9% 1,000 ML IV STA (21:01)
[2017-09-29] MEDS ORDERED: RX INFO: IV CONTRAST WAS GIVEN 1 EACH MISC MISCELLANE PRN (21:01)
[2017-09-29] MEDS ORDERED: KETOROLAC 30 MG/ML 1 ML VIAL IVP STA (21:01)
[2017-09-29] MEDS ORDERED: ACETAMINOPHEN TAB 325 MG TAB PO STA (21:02)
--- NOTE | 2017-09-29 21:23 | ED ---
Abdominal Pain HPI - General Chief Complaint: Abdominal Pain Stated Complaint: [employer] sent/UTI Time Seen by Provider: 09/29/17 20:52 Source: patient Mode of arrival: wheelchair Limitations: no limitations - History of Present Illness Initial Comments: 57-year-old female patient with past medical history significant for glioblastoma currently in remission presents to the emergency department today for evaluation of left-sided abdominal pain and fever. The patient states that symptoms started yesterday. Patient states that she developed left lower quadrant abdominal pain and vomiting yesterday. She denies any radiation of the pain into her back. States that she was more tired than usual and so she slept most of the day yesterday. States that she was in to urgent care today and was diagnosed with urinary tract infection, states that her temperature was 101F, they're concerned for more severe infection and sent her here for evaluation. Patient denies any constipation or diarrhea. She denies any hematemesis, hematochezia, or melena. Patient is incontinent and does wear a brief. Family reports that patient does have some residual speech and gait deficits from her glioblastoma. State that her speech has been worse since yesterday as well. Denies any cough, congestion, sore throat, or ear pain. Patient denies any recent rash, shortness breath, chest pain, back pain, numbness, tingling, dizziness, headache, visual changes, or any other complaints. - Related Data Home Medications Medication Instructions Recorded Confirmed Ergocalciferol (Vitamin D2) 50,000 unit PO Q30D 08/13/16 09/29/17 [Vitamin D2] Alendronate Sodium [Fosamax] 70 mg PO Q7D 09/29/17 09/29/17 Aspirin [Adult Low Dose Aspirin EC] 81 mg PO DAILY 09/29/17 09/29/17 Baclofen [Lioresal] 10 mg PO TID PRN 09/29/17 09/29/17 Previous Rx's Medication Instructions Recorded rOPINIRole HCL [Requip] 0.25 mg PO HS #30 tab 08/18/16 Allergies Allergy/AdvReac Type Severity Reaction Status Date / Time carbamazepine [From Tegretol] Allergy Rash/Hives Verified 09/29/17 21:05 phenytoin [From Dilantin] Allergy Rash/Hives Verified 09/29/17 21:05 Review of Systems ROS Statement: Those systems with pertinent positive or pertinent negative responses have been documented in the HPI. ROS Other: All systems not noted in ROS Statement are negative. Past Medical History Past Medical History: Cancer, Musculoskeletal Disorder, Neurologic Disorder Additional Past Medical History / Comment(s): 1999 Glioblastoma with radiation, then surgery followed by chemotherapy, slight cerebral palsey at -affected motor skills and speech some. History of Any Multi-Drug Resistant Organisms: None Reported Past Surgical History: Orthopedic Surgery Additional Past Surgical History / Comment(s): 1999 Brain surgery, colonoscopy Past Anesthesia/Blood Transfusion Reactions: No Reported Reaction Past Psychological History: No Psychological Hx Reported Smoking Status: Never smoker Past Alcohol Use History: None Reported Past Drug Use History: None Reported, Unable to Obtain - Past Family History Father Family Medical History: Diabetes Mellitus Mother Family Medical History: Diabetes Mellitus General Exam Limitations: no limitations General appearance: alert, in no apparent distress, other (This is a well- developed, well-nourished adult female patient in no acute distress. Vital signs upon presentation are temperature 99.3F, pulse 81, respirations 16, blood pressure 109/60, pulse ox 96% on room air.) Eye exam: Present: normal appearance, PERRL, EOMI. Absent: scleral icterus, conjunctival injection, periorbital swelling ENT exam: Present: normal exam, normal oropharynx, mucous membranes moist, TM's normal bilaterally Neck exam: Present: normal inspection. Absent: tenderness, meningismus, lymphadenopathy Respiratory exam: Present: normal lung sounds bilaterally. Absent: respiratory distress, wheezes, rales, rhonchi, stridor Cardiovascular Exam: Present: regular rate, normal rhythm, normal heart sounds. Absent: systolic murmur, diastolic murmur, rubs, gallop, clicks GI/Abdominal exam: Present: soft, tenderness (Left lower quadrant tenderness, left upper quadrant tenderness), normal bowel sounds. Absent: distended, guarding, rebound, rigid Back exam: Present: normal inspection. Absent: CVA tenderness (R), CVA tenderness (L) Neurological exam: Present: alert, oriented X3, CN II-XII intact Psychiatric exam: Present: normal affect, normal mood Skin exam: Present: warm, dry, intact, normal color. Absent: rash Course Vital Signs 09/29/17 20:40 Temperature 99.3 F Pulse Rate 81 Respiratory 16 Rate Blood Pressure 109/60 O2 Sat by Pulse 96 Oximetry Medical Decision Making - Medical Decision Making 57-year-old female patient presents to the emergency department today for evaluation of left lower quadrant abdominal pain, urinary tract infection, and fever. Physical examination did reveal left lower quadrant abdominal tenderness. No CVA tenderness. Labs reviewed and did reveal an elevated white blood cell count at 12.3, urinalysis shows cloudy appearance with trace protein , 1+ ketones, large amount of blood, positive nitrite, large leukocyte esterase , 23 red blood cells, 77 white blood cells, many white blood cell clumps, rare amorphous sediment, few urine bacteria, few urine mucus. Did perform CT of the abdomen and pelvis with contrast due to the severe left lower quadrant tenderness. CT scan showed an obstructing renal stone with left-sided hydronephrosis. Patient had temperature 99.7 without treatment here in the department. Heart rate was normal. We did give IV fluids, pain medications, patient is feeling somewhat better upon reevaluation. My attending Dr. Cramer did speak to the urologist Dr. Jones who would like to admit patient for further evaluation, he would like medicine to be primary on the case due to patient's history of glioblastoma. I did discuss the findings and results with the family discussed the plan with the family. They were uncertain today wanted to stay or be discharged as they do not have insurance at this time. Did discuss risks of discharge, they agreed to admission. Patient will be started on IV Rocephin, IV fluids, pain management will be provided. - Lab Data Result diagrams: 09/29/17 21:22 09/29/17 21:22 Lab Results 09/29/17 09/29/17 09/29/17 Range/Units 21:22 21:22 21:22 WBC 12.3 H (3.8-10.6) k/uL RBC 4.23 (3.80-5.40) m/uL Hgb 13.4 (11.4-16.0) gm/dL Hct 39.0 (34.0-46.0) % MCV 92.3 (80.0-100.0) fL MCH 31.8 (25.0-35.0) pg MCHC 34.4 (31.0-37.0) g/dL RDW 12.6 (11.5-15.5) % Plt Count 192 (150-450) k/uL Neutrophils % 89 % Lymphocytes % 5 % Monocytes % 4 % Eosinophils % 1 % Basophils % 0 % Neutrophils # 10.9 H (1.3-7.7) k/uL Lymphocytes # 0.6 L (1.0-4.8) k/uL Monocytes # 0.5 (0-1.0) k/uL Eosinophils # 0.2 (0-0.7) k/uL Basophils # 0.0 (0-0.2) k/uL Sodium 141 (137-145) mmol/L Potassium 3.7 (3.5-5.1) mmol/L Chloride 103 (98-107) mmol/L Carbon Dioxide 23 (22-30) mmol/L Anion Gap 15 mmol/L BUN 19 H (7-17) mg/dL Creatinine 0.60 (0.52-1.04) mg/dL Est GFR (CKD-EPI)AfAm >90 (>60 ml/min/1.73 sqM) Est GFR (CKD-EPI)NonAf >90 (>60 ml/min/1.73 sqM) Glucose 81 (74-99) mg/dL Plasma Lactic Acid Gerardo 1.0 (0.7-2.0) mmol/L Calcium 9.4 (8.4-10.2) mg/dL Total Bilirubin 1.8 H (0.2-1.3) mg/dL AST 28 (14-36) U/L ALT 27 (9-52) U/L Alkaline Phosphatase 76 (38-126) U/L Total Protein 7.0 (6.3-8.2) g/dL Albumin 4.2 (3.5-5.0) g/dL Amylase 43 (30-110) U/L Lipase 61 (23-300) U/L Urine Color Urine Appearance (Clear) Urine pH (5.0-8.0) Ur Specific [place] (1.001-1.035) Urine Protein (Negative) Urine Glucose (UA) (Negative) Urine Ketones (Negative) Urine Blood (Negative) Urine Nitrite (Negative) Urine Bilirubin (Negative) Urine Urobilinogen (<2.0) mg/dL Ur Leukocyte Esterase (Negative) Urine RBC (0-5) /hpf Urine WBC (0-5) /hpf Urine WBC Clumps (None) /hpf Ur Squamous Epith Cells (0-4) /hpf Amorphous Sediment (None) /hpf Urine Bacteria (None) /hpf Cellular Casts (0) /lpf Urine Mucus (None) /hpf 09/29/17 Range/Units 21:22 WBC (3.8-10.6) k/uL RBC (3.80-5.40) m/uL Hgb (11.4-16.0) gm/dL Hct (34.0-46.0) % MCV (80.0-100.0) fL MCH (25.0-35.0) pg MCHC (31.0-37.0) g/dL RDW (11.5-15.5) % Plt Count (150-450) k/uL Neutrophils % % Lymphocytes % % Monocytes % % Eosinophils % % Basophils % % Neutrophils # (1.3-7.7) k/uL Lymphocytes # (1.0-4.8) k/uL Monocytes # (0-1.0) k/uL Eosinophils # (0-0.7) k/uL Basophils # (0-0.2) k/uL Sodium (137-145) mmol/L Potassium (3.5-5.1) mmol/L Chloride (98-107) mmol/L Carbon Dioxide (22-30) mmol/L Anion Gap mmol/L BUN (7-17) mg/dL Creatinine (0.52-1.04) mg/dL Est GFR (CKD-EPI)AfAm (>60 ml/min/1.73 sqM) Est GFR (CKD-EPI)NonAf (>60 ml/min/1.73 sqM) Glucose (74-99) mg/dL Plasma Lactic Acid Gerardo (0.7-2.0) mmol/L Calcium (8.4-10.2) mg/dL Total Bilirubin (0.2-1.3) mg/dL AST (14-36) U/L ALT (9-52) U/L Alkaline Phosphatase (38-126) U/L Total Protein (6.3-8.2) g/dL Albumin (3.5-5.0) g/dL Amylase (30-110) U/L Lipase (23-300) U/L Urine Color Yellow Urine Appearance Cloudy H (Clear) Urine pH 5.0 (5.0-8.0) Ur Specific [place] 1.011 (1.001-1.035) Urine Protein Trace H (Negative) Urine Glucose (UA) Negative (Negative) Urine Ketones 1+ H (Negative) Urine Blood Large H (Negative) Urine Nitrite Positive H (Negative) Urine Bilirubin Negative (Negative) Urine Urobilinogen <2.0 (<2.0) mg/dL Ur Leukocyte Esterase Large H (Negative) Urine RBC 23 H (0-5) /hpf Urine WBC 77 H (0-5) /hpf Urine WBC Clumps Many H (None) /hpf Ur Squamous Epith Cells <1 (0-4) /hpf Amorphous Sediment Rare H (None) /hpf Urine Bacteria Few H (None) /hpf Cellular Casts 3 (0) /lpf Urine Mucus Few H (None) /hpf - Radiology Data Radiology results: report reviewed, image reviewed CT of the abdomen and pelvis with contrast was obtained. Report was reviewed in its entirety. Impression by Dr. Resendiz shows evidence of mild obstruction of the left upper collecting system probably due to small stone in the distal left ureter near the bladder. Small bilateral renal cortical cysts. Subsegmental atelectasis at the lung bases. Disposition Clinical Impression: Urinary tract infection, SIRS (systemic inflammatory response syndrome), Ureteral stone Disposition: ADMITTED IP TO THIS [facility] Condition: Serious Decision to Admit Reason: Admit from EC Decision Date: 09/29/17 Decision Time: 23:28
[2017-09-29 21:48] LABS: Basophils % (A) 0 %; Eosinophils # (A) 0.2 k/uL (0-0.7); Eosinophils % (A) 1 %; HGB 13.4 gm/dL (11.4-16.0); Lymphocytes # (A) 0.6 k/uL (1.0-4.8); Lymphocytes % (A) 5 %; MCH 31.8 pg (25.0-35.0); MCHC 34.4 g/dL (31.0-37.0); MCV 92.3 fL (80.0-100.0); Mean Platelet Volume 7.7; Monocytes # (A) 0.5 k/uL (0-1.0); Monocytes % (A) 4 %; Neutrophils # (A) 10.9 k/uL (1.3-7.7); Neutrophils % (A) 89 %; Platelet Count 192 k/uL (150-450); RBC 4.23 m/uL (3.80-5.40); RDW 12.6 % (11.5-15.5); WBC 12.3 k/uL (3.8-10.6)
[2017-09-29 21:49] LABS: Amorphous Sediment,Urine Rare /hpf; Appearance,Urine Cloudy (Clear); Bacteria,Urine Few /hpf; Bilirubin,Urine Negative (Negative); Blood,Urine Large (Negative); Cellular Casts,Urine 3 /lpf (0); Color,Urine Yellow; Glucose,Urine (UA) Negative (Negative); Ketones,Urine 1+ (Negative); Leukocyte Esterase,Urine Large (Negative); Mucus,Urine Few /hpf; Nitrite,Urine Positive (Negative); Protein,Urine Trace (Negative); RBC,Urine 23 /hpf (0-5); Specific Gravity,Urine 1.011 (1.001-1.035); Squamous Epithelial Cell,Urine <1 /hpf (0-4); Urobilinogen,Urine <2.0 mg/dL (<2.0); WBC,Urine 77 /hpf (0-5)
[2017-09-29 21:56] LABS: ALT 27 U/L (9-52); AST 28 U/L (14-36); Albumin 4.2 g/dL (3.5-5.0); Alkaline Phosphatase 76 U/L (38-126); Amylase 43 U/L (30-110); Anion Gap 15 mmol/L; Blood Urea Nitrogen 19 mg/dL (7-17); Calcium 9.4 mg/dL (8.4-10.2); Carbon Dioxide 23 mmol/L (22-30); Chloride 103 mmol/L (98-107); Glucose 81 mg/dL (74-99); Lipase 61 U/L (23-300); Potassium 3.7 mmol/L (3.5-5.1); Sodium 141 mmol/L (137-145); Total Bilirubin 1.8 mg/dL (0.2-1.3)
--- NOTE | 2017-09-29 22:21 | CT ---
EXAMINATION TYPE: CT abdomen pelvis w con DATE OF EXAM: 09/29/2017 COMPARISON: NONE HISTORY: Left side abd pain, nausea and vomiting. CT DLP: 419.4 mGycm Automated exposure control for dose reduction was used. TECHNIQUE: Helical acquisition of images was performed from the lung bases through the pelvis. CONTRAST: Performed without Oral Contrast and with IV Contrast, patient injected with 100ml mL of Isovue M300. FINDINGS: There is mild linear density at the lung bases. There is no pleural effusion. Heart size is normal. T here is no pericardial effusion. Liver spleen pancreas gallbladder appear normal. Bile ducts are not dilated. There is no adrenal mass . There is left-sided hydronephrosis and hydroureter. There is however fairly normal left renal funct ion. There is a 1 cm cortical cyst on the posterior left kidney. There is 1 cm cortical cyst lower po le right kidney. There is probably of 3 to 4 mm calculus in the distal left ureter on image 77. There are pins fixing the left femoral neck. There is no retroperitoneal adenopathy. There is no ascites. I see no intestinal wall thickening. The re are no dilated loops. There is no sign of appendicitis. There is slight depression of the superior endplate of L3. This appears old. IMPRESSION: THERE IS EVIDENCE OF MILD OBSTRUCTION OF THE LEFT UPPER COLLECTING SYSTEM PROBABLY DUE TO SMALL STONE IN THE DISTAL LEFT URETER NEAR THE BLADDER. SMALL BILATERAL RENAL CORTICAL CYSTS. SUBSEGMENTAL ATELE CTASIS AT THE LUNG BASES.
[2017-09-29] MEDS ORDERED: cefTRIAXone IN SWFI 2,000 MG/20 ML SYRINGE IVP STA (22:25)
[2017-09-29] MEDS ORDERED: NALOXONE 0.4 MG/ML 1 ML VIAL IV PRN (23:22)
[2017-09-29] MEDS ORDERED: ACETAMINOPHEN TAB 325 MG TAB PO PRN (23:22)
[2017-09-29] MEDS ORDERED: ONDANSETRON 4 MG/2 ML VIAL IVP PRN (23:22)
[2017-09-30] MEDS: SODIUM CHLORIDE 0.9% 1,000 ML IV SCH ×2 (00:40→12:24)
[2017-09-30 00:58] VITALS: BMI 21.8
[2017-09-30 07:09] LABS: Basophils % (A) 0 %; Eosinophils # (A) 0.1 k/uL (0-0.7); Eosinophils % (A) 1 %; HCT 35.3 % (34.0-46.0); HGB 11.9 gm/dL (11.4-16.0); Lymphocytes % (A) 12 %; MCH 31.4 pg (25.0-35.0); MCHC 33.7 g/dL (31.0-37.0); MCV 93.2 fL (80.0-100.0); Mean Platelet Volume 7.6; Monocytes # (A) 0.5 k/uL (0-1.0); Monocytes % (A) 6 %; Neutrophils # (A) 7.2 k/uL (1.3-7.7); Neutrophils % (A) 81 %; Platelet Count 179 k/uL (150-450); RBC 3.78 m/uL (3.80-5.40); RDW 12.6 % (11.5-15.5); WBC 8.9 k/uL (3.8-10.6)
[2017-09-30 07:14] LABS: Anion Gap 11 mmol/L; Blood Urea Nitrogen 16 mg/dL (7-17); Calcium 8.6 mg/dL (8.4-10.2); Carbon Dioxide 24 mmol/L (22-30); Chloride 108 mmol/L (98-107); Glucose 70 mg/dL (74-99); Potassium 3.8 mmol/L (3.5-5.1); Sodium 143 mmol/L (137-145)
--- NOTE | 2017-09-30 15:25 | P.GSCN ---
History of Present Illness Consult date: 09/30/17 Reason for Consult: Ureteral Calculus, UTI Requesting physician: Frederick Brandt History of present illness: The patient is a 57-year-old woman with an unremarkable urologic history. She was admitted with a several-day history of left lower quadrant abdominal pain. She has also experienced nausea, fever, and chills. She denies any prior history of UTIs or urolithiasis. She is a vague historian. Review of Systems - Constitutional Reports chills, Reports fever - Respiratory Denies dyspnea - Gastrointestinal Reports nausea - Genitourinary Genitourinary: Denies dysuria, Denies hematuria Past Medical History Past Medical History: Cancer, Musculoskeletal Disorder, Neurologic Disorder Additional Past Medical History / Comment(s): 1999 Glioblastoma with radiation, then surgery followed by chemotherapy, slight cerebral palsey at -affected motor skills and speech some. History of Any Multi-Drug Resistant Organisms: None Reported Past Surgical History: Orthopedic Surgery Additional Past Surgical History / Comment(s): 1999 Brain surgery, colonoscopy, surgery on femur Past Anesthesia/Blood Transfusion Reactions: No Reported Reaction Past Psychological History: No Psychological Hx Reported Additional Psychological History / Comment(s): Pt resides with her spouse. She has a cane and walker for ambulation. She drives only in the mornings. Smoking Status: Never smoker Past Alcohol Use History: None Reported Past Drug Use History: None Reported, Unable to Obtain - Past Family History Father Family Medical History: Diabetes Mellitus Mother Family Medical History: Diabetes Mellitus Medications and Allergies Home Medications Medication Instructions Recorded Confirmed Type Ergocalciferol (Vitamin D2) 50,000 unit PO Q30D 08/13/16 09/29/17 History [Vitamin D2] rOPINIRole HCL [Requip] 0.25 mg PO HS #30 tab 08/18/16 09/29/17 Rx Alendronate Sodium [Fosamax] 70 mg PO Q7D 09/29/17 09/29/17 History Aspirin [Adult Low Dose Aspirin EC] 81 mg PO DAILY 09/29/17 09/29/17 History Baclofen [Lioresal] 10 mg PO TID PRN 09/29/17 09/29/17 History Allergies Allergy/AdvReac Type Severity Reaction Status Date / Time carbamazepine [From Tegretol] Allergy Rash/Hives Verified 05/24/18 21:05 phenytoin [From Dilantin] Allergy Rash/Hives Verified 09/29/17 21:05 Surgical - Exam Vital Signs Temp Pulse Resp BP Pulse Ox 99.3 F 81 16 109/60 96 09/29/17 20:40 09/29/17 20:40 09/29/17 20:40 09/29/17 20:40 09/29/17 20:40 - General well developed, well nourished, no distress - Respiratory normal respiratory effort - Abdomen Abdomen: soft, tender (Mild left lower quadrant tenderness), no masses, no guarding, no rigid, no rebound, no distended - Psychiatric oriented to time, oriented to person, oriented to place Results - Labs 09/30/17 06:33 09/30/17 06:33 Abnormal Lab Results - Last 24 Hours (Table) 09/29/17 09/29/17 09/29/17 Range/Units 21:22 21:22 21:22 WBC 12.3 H (3.8-10.6) k/uL Neutrophils # 10.9 H (1.3-7.7) k/uL Lymphocytes # 0.6 L (1.0-4.8) k/uL BUN 19 H (7-17) mg/dL Total Bilirubin 1.8 H (0.2-1.3) mg/dL Urine Appearance Cloudy H (Clear) Urine Protein Trace H (Negative) Urine Ketones 1+ H (Negative) Urine Blood Large H (Negative) Urine Nitrite Positive H (Negative) Ur Leukocyte Esterase Large H (Negative) Urine RBC 23 H (0-5) /hpf Urine WBC 77 H (0-5) /hpf Urine WBC Clumps Many H (None) /hpf Amorphous Sediment Rare H (None) /hpf Urine Bacteria Few H (None) /hpf Urine Mucus Few H (None) /hpf Diabetes panel 09/29/17 Range/Units 21:22 Sodium 141 (137-145) mmol/L Potassium 3.7 (3.5-5.1) mmol/L Chloride 103 (98-107) mmol/L Carbon Dioxide 23 (22-30) mmol/L BUN 19 H (7-17) mg/dL Creatinine 0.60 (0.52-1.04) mg/dL Glucose 81 (74-99) mg/dL Calcium 9.4 (8.4-10.2) mg/dL AST 28 (14-36) U/L ALT 27 (9-52) U/L Alkaline Phosphatase 76 (38-126) U/L Total Protein 7.0 (6.3-8.2) g/dL Albumin 4.2 (3.5-5.0) g/dL Calcium panel 09/29/17 Range/Units 21:22 Calcium 9.4 (8.4-10.2) mg/dL Albumin 4.2 (3.5-5.0) g/dL Pituitary panel 09/29/17 Range/Units 21:22 Sodium 141 (137-145) mmol/L Potassium 3.7 (3.5-5.1) mmol/L Chloride 103 (98-107) mmol/L Carbon Dioxide 23 (22-30) mmol/L BUN 19 H (7-17) mg/dL Creatinine 0.60 (0.52-1.04) mg/dL Glucose 81 (74-99) mg/dL Calcium 9.4 (8.4-10.2) mg/dL Adrenal panel 09/29/17 Range/Units 21:22 Sodium 141 (137-145) mmol/L Potassium 3.7 (3.5-5.1) mmol/L Chloride 103 (98-107) mmol/L Carbon Dioxide 23 (22-30) mmol/L BUN 19 H (7-17) mg/dL Creatinine 0.60 (0.52-1.04) mg/dL Glucose 81 (74-99) mg/dL Calcium 9.4 (8.4-10.2) mg/dL Total Bilirubin 1.8 H (0.2-1.3) mg/dL AST 28 (14-36) U/L ALT 27 (9-52) U/L Alkaline Phosphatase 76 (38-126) U/L Total Protein 7.0 (6.3-8.2) g/dL Albumin 4.2 (3.5-5.0) g/dL - Imaging CT scan - abdomen: report reviewed, image reviewed Assessment and Plan (1) Urinary tract infection Current Visit: Yes Status: Acute Code(s): N39.0 - URINARY TRACT INFECTION, SITE NOT SPECIFIED SNOMED Code(s): 40653740 (2) Ureteral stone Current Visit: Yes Status: Acute Code(s): N20.1 - CALCULUS OF URETER SNOMED Code(s): 10522028 Plan: The patient is a 57-year-old white female with an unremarkable urologic history. She was admitted with left sided abdominal discomfort, and computed tomography scan shows mild left hydronephrosis due to an apparent 3 mm left distal ureteral calculus. Urinalysis is consistent with infection, and she was admitted with for IV antibiotics and hydration. She is currently afebrile and comfortable. She will be treated with tamsulosin, and her urine will be strained. I explained to her that she may require placement of a left ureteral stent. If that is the case, she would require secondary ureteroscopic removal of the calculus once her infection has cleared. Time with Patient: Greater than 30
[2017-09-30] MEDS: TAMSULOSIN 0.4 MG CAP.ER.24H PO SCH (15:48)
--- NOTE | 2017-09-30 18:21 | HP ---
HISTORY AND PHYSICAL CHIEF COMPLAINT: Fever, flank and abdominal pain. HISTORY OF PRESENT ILLNESS: This is another admission for this 57-year-old white female. Many years ago she had a craniotomy for a malignant brain neoplasm and she has done well ever since. She came to the emergency room with a complaint of left-sided abdominal back pain and a fever with vomiting and was found to have left ureteral obstruction from stone and secondary infection. She has a little trouble with speech, but she is oriented and alert. She has had no diarrhea or any other symptoms. REVIEW OF SYSTEMS: Otherwise unremarkable. Past medical history, family history, and personal and social histories are unremarkable otherwise. ALLERGIC: 1. TEGRETOL. 2. DILANTIN. She is on: 1. Atenolol 0.25 at bedtime. 2. Baclofen 10 mg 3 times a day. 3. Fosamax 70 mg once a week. 4. Vitamin D3 50,000 units a month. 5. Aspirin 81 mg. She does not smoke or drink. PHYSICAL EXAMINATION: Blood pressure is 96/58, pulse 93, respirations of 35 and temperature is 100. In general she appeared to be well developed, well nourished, and in no acute distress. Skin color is normal. Skin was hot and dry. Lymph nodes were not enlarged. Head, ears, eyes, nose, mouth and throat were normal. Neck veins were not distended. Thyroid was not enlarged. Chest was clear. Cardiac exam was normal. The abdomen was soft and a little bit tender on the left side. Bowel sounds were present. Extremities were normal. Other than her cognitive problem, she is neurologically very functional. ADMITTING DIAGNOSES: 1. Urinary tract infection. 2. Left ureteral calculus. 3. History of craniotomy and resection of glioblastoma. PLAN: 1. Bed rest. 2. IV fluids. 3. IV antibiotics. 4. Hope that stone passes spontaneously. MMODL / IJN: [id number] /
--- NOTE | 2017-09-30 18:24 | PN ---
PROGRESS NOTE DATE OF SERVICE: 09/30/2017. CHIEF COMPLAINT: Urinary tract infection and ureteral calculus history on the left. HISTORY OF PRESENT ILLNESS: This lady is still in a great deal of discomfort. It is mostly in the left lower quadrant. She is not vomiting, but she is not hungry. PHYSICAL EXAM: She is pale. Chest is clear. Cardiac is normal. She is tender in the left side of the abdomen. IMPRESSION: 1. Left ureteral calculus. 2. Urinary tract infection. 3. Dehydration. 4. Hypotension. PLAN: 1. Continue with IV fluids and antibiotics. 2. Analgesics. MMODL / IJN: [id number] /
[2017-09-30] MEDS: cefTRIAXone IN SWFI 1,000 MG/10 ML SYRINGE IVP SCH (21:51)
[2017-09-30] MEDS: BACLOFEN 10 MG TAB PO PRN (22:16)
[2017-10-01] MEDS: cefTRIAXone IN SWFI 1,000 MG/10 ML SYRINGE IVP SCH ×2 (09:34→21:47)
[2017-10-01] MEDS: TAMSULOSIN 0.4 MG CAP.ER.24H PO SCH (09:36)
[2017-10-01] MEDS: ASPIRIN 81 MG PO SCH (09:36)
--- NOTE | 2017-10-01 11:32 | P.PN ---
Subjective Progress Note Date: 10/01/17 The patient is in the hospital with left-sided flank pain. A computed tomography scan showed a possible distal ureteral stone on the left. She also had some atelectasis. There is mild Goodwin on the left. Her urine was inflamed but the culture is negative. White count is normal. She has a low-grade temperature. We discussed removing the stone versus spontaneous passage. She was seen by Dr. Dickerson yesterday and wants to try to pass this spontaneously at her request. She will ambulate. We will see how she does over the next 24 hours. Objective - Vital Signs Vital signs: Vital Signs Temp 98.5 F 10/01/17 11:25 Pulse 77 10/01/17 11:25 Resp 16 10/01/17 11:25 BP 111/68 10/01/17 11:25 Pulse Ox 98 10/01/17 11:25 Intake & Output 09/30/17 10/01/17 10/01/17 18:59 06:59 18:59 Intake Total 900 Output Total 425 100 250 Balance 475 -100 -250 Intake: Oral 900 Output: Urine 425 100 250 Other: Voiding Method Toilet Toilet Diaper # Voids 1 - Labs CBC & Chem 7: 09/30/17 06:33 09/30/17 06:33 Labs: Microbiology - Last 24 Hours (Table) 09/29/17 21:22 Blood Culture - Preliminary Blood No Growth after 24 hours 09/29/17 21:22 Urine Culture - Preliminary Urine,Voided
[2017-10-01] MEDS: SODIUM CHLORIDE 0.9% 1,000 ML IV SCH ×2 (12:02→14:26)
--- NOTE | 2017-10-01 12:40 | PN ---
PROGRESS NOTE DATE OF SERVICE: 10/01/17 CHIEF COMPLAINT: Urinary tract infection and impacted left ureteral calculus. HISTORY OF PRESENT ILLNESS: This lady is doing better and pain is improved, but she still has significant left lower quadrant abdominal pain and she has not passed a stone. PHYSICAL EXAM: Color is good. Vital signs normal. She is afebrile. Chest is clear. Cardiac exam is normal. The abdomen is soft and she is tender in the left lower quadrant. Bowel sounds present. IMPRESSION: 1. Urinary tract infection with impacted left distal ureteral calculus with hydronephrosis. 2. Status post glioblastoma. PLAN: Continue with IV fluids and antibiotics and stranding of urine in hopes that she does not require stent. MMODL / IJN: [id number] /
[2017-10-01] MEDS: BACLOFEN 10 MG TAB PO PRN (21:47)
[2017-10-02] MEDS: MORPHINE SULFATE 4 MG/ML SYRINGE IV PRN ×2 (02:07→08:29)
[2017-10-02] MEDS: SODIUM CHLORIDE 0.9% 1,000 ML IV SCH (08:27)
[2017-10-02] MEDS: cefTRIAXone IN SWFI 1,000 MG/10 ML SYRINGE IVP SCH (08:28)
[2017-10-02] MEDS: TAMSULOSIN 0.4 MG CAP.ER.24H PO SCH (08:30)
[2017-10-02] MEDS: ASPIRIN 81 MG PO SCH (08:30)
[2017-10-02 08:34] VITALS: RESP 20
--- NOTE | 2017-10-02 11:56 | P.PN ---
Subjective The patient has been afebrile for the last 24 hours. She is feeling better. She has not passed her stone. She does not feel she is ready to go home from a pain standpoint. We will observe her another 24 hours. If her pain at subsides and she can be discharged home tomorrow. Objective - Vital Signs Vital signs: Vital Signs Temp 98.4 F 10/02/17 08:20 Pulse 69 10/02/17 08:20 Resp 20 10/02/17 08:20 BP 126/63 10/02/17 08:20 Pulse Ox 95 10/02/17 08:20 Intake & Output 10/01/17 10/02/17 10/02/17 18:59 06:59 18:59 Output Total 1150 325 200 Balance -1150 -325 -200 Output: Urine 1150 325 100 Emesis 100 Other: Voiding Method Toilet Toilet Toilet Diaper Diaper # Voids 1 2 - Labs CBC & Chem 7: 09/30/17 06:33 09/30/17 06:33 Labs: Microbiology - Last 24 Hours (Table) 09/29/17 21:22 Urine Culture - Final Urine,Voided Escherichia coli 09/29/17 21:22 Blood Culture - Preliminary Blood No Growth after 48 hours
[2017-10-02 12:56] VITALS: BP 113/75; PULSE 66; TEMP 97.5
--- NOTE | 2017-10-02 13:22 | PN ---
PROGRESS NOTE CHIEF COMPLAINT: Urinary tract infection and left ureteral calculus. HISTORY OF PRESENT ILLNESS: This lady is doing fairly well but still having a lot of pain. She still retains the stone. She has had no fever or chills. PHYSICAL EXAM: Vital signs are normal. Chest is clear. Cardiac exam is normal. The abdomen is a little bit tender in the left lower quadrant. IMPRESSION: Left ureteral calculus with hydronephrosis and urinary tract infection. PLAN: Continue on current program. If stone still has not passed, she will have to undergo stenting. MMODL / IJN: [id number] /
--- NOTE | 2017-10-04 06:34 | DS ---
DISCHARGE SUMMARY CHIEF COMPLAINT: Abdominal pain, fever and chills. HISTORY OF PRESENT ILLNESS AND PHYSICAL EXAM: Details of this lady's history and physical can be found in the initial workup. LABORATORY STUDIES: While she has in the hospital, she had laboratory studies, details of which can be found in the laboratory section of her chart. COURSE IN THE HOSPITAL: After admission, she was placed on bedrest, started on intravenous fluids and IV antibiotics and she improved. She continued to have left-sided lower abdominal pain due to the ureteral calculus on the left. She was seen by Urology. They felt that she could go home on analgesics and antibiotics and if the stone did not pass, they will place a stent as an outpatient. She went home on the . FINAL DIAGNOSES: 1. Left ureteral calculus with hydronephrosis. 2. Status post glioblastoma. MMODL / IJN: [id number] /
== END 2017-10-02 14:45 | disposition home or self-care (01) | DRG 690 ==
LOC: EC 20:34 → 6PED 23:22
PROVIDERS: ADMIT Family Medicine; ATTEND Family Medicine
DX: N39.0 Urinary tract infection, site not specified (principal); C71.9 Malignant neoplasm of brain, unspecified; J98.11 Atelectasis; E86.0 Dehydration; N13.2 Hydronephrosis with renal and ureteral calculous obstruction; R32 Unspecified urinary incontinence; Z79.82 Long term (current) use of aspirin; Z79.83 Long term (current) use of bisphosphonates; Z83.3 Family history of diabetes mellitus; Z92.3 Personal history of irradiation; Z88.8 Allergy status to other drugs, medicaments and biological substances
CPT/HCPCS: 36415; 74177; 80048; 80053; 81001; 82150; 83605; 83690; 85025; 87040; 87077; 87086; 87186; 96361; 96374; 96375; 99285

== ENCOUNTER → 2017-11-01 | Outpatient (CLI) | payer SELFPAY ==
--- NOTE | 2017-11-01 10:32 | US ---
EXAMINATION TYPE: US kidneys/renal and bladder DATE OF EXAM: 11/01/2017 COMPARISON: CT 09/29/2017 CLINICAL HISTORY: N21.1 calculus of urethra,R93.4 Hx of hydronephros. Left flank pain. History of re cent renal infection. EXAM MEASUREMENTS: Right Kidney: 9.6 x 4.2 x 4.2 cm Left Kidney: 10.1 x 3.6 x 4.3 cm Right Kidney: Dromedary hump and prominent column of renetta seen. Left Kidney: wnl Bladder: distended, wnl as visualized Bilateral Jets seen There is no evidence for hydronephrosis at this point in time. No nephrolithiasis is seen. No deven s are identified. The urinary bladder is anechoic. Bilateral ureteral jets are seen. IMPRESSION: No distinct abnormality appreciated.
--- NOTE | 2017-11-01 11:06 | XR ---
EXAMINATION TYPE: XR KUB DATE OF EXAM: 11/01/2017 HISTORY: Pain Comparison: CT 09/29/2017 Single KUB is submitted for interpretation. Findings: Right renal calculi: None Visualized. Right ureteral calculi: None Visualized. Left renal calculi: Difficult to exclude distal left ureteral calculus with 3 mm calculus seen in th e region of the left UVJ. Similar right-sided Calculus could reflect phlebolith. Left ureteral calculi: None Visualized. Pelvic calcifications: Probable pelvic phleboliths. Bowel gas pattern is unremarkable. No free air. No mass effects. IMPRESSION: 1. Difficult to exclude distal left ureteral calculus with 3 mm calculus seen in the region of the le ft UVJ. Similar right-sided Calculus could reflect phlebolith.
== END | disposition home or self-care (01) ==
LOC: RADUSWWP 09:47
PROVIDERS: ATTEND Urology
DX: N20.1 Calculus of ureter (principal); Z87.448 Personal history of other diseases of urinary system
CPT/HCPCS: 74018; 76770

== ENCOUNTER 2018-03-15 18:53 | Emergency (ER) | payer OTHER ==
--- NOTE | 2018-03-15 19:45 | ED ---
General Adult HPI <Ronna Pelayo - Last Filed: 04/04/18 21:02> - General Source: patient, RN notes reviewed Mode of arrival: ambulatory Limitations: no limitations <Parker Calle - Last Filed: 04/05/18 10:25> - General Chief complaint: Dizziness Stated complaint: fall, confusion Time Seen by Provider: 03/15/18 19:00 - History of Present Illness Initial comments: This is a 57-year-old female who has had previous brain surgery and has a little trouble finding words as a baseline. Daughter states that today she woke up and was unable to see anything but yesterday and now all today she was very lightheaded and complained of dizziness and fell down times one and hit her head. Patient states she does have a mild headache but denies any visual disturbance. Patient denies any chest pain palpitations difficulty breathing shortness of breath. She denies any recent fever chills or cough per patient denies any abdominal pain patient denies nausea vomiting diarrhea. Patient denies any neck pain or injury to the neck. Patient denies any other area of pain. (Parker Calle) - Related Data Home Medications Medication Instructions Recorded Confirmed Ergocalciferol (Vitamin D2) 50,000 unit PO Q30D 08/13/16 03/15/18 [Vitamin D2] Alendronate Sodium [Fosamax] 70 mg PO FR 09/29/17 03/15/18 Aspirin [Adult Low Dose Aspirin EC] 81 mg PO DAILY 09/29/17 03/15/18 Allergies Allergy/AdvReac Type Severity Reaction Status Date / Time carbamazepine [From Tegretol] Allergy Rash/Hives Verified 03/15/18 19:08 phenytoin [From Dilantin] Allergy Rash/Hives Verified 03/15/18 19:08 Review of Systems ROS Other: All systems not noted in ROS Statement are negative. <Ronna Pelayo - Last Filed: 04/04/18 21:02> ROS Other: All systems not noted in ROS Statement are negative. <Parker Calle - Last Filed: 04/05/18 10:25> ROS Statement: Those systems with pertinent positive or pertinent negative responses have been documented in the HPI. Past Medical History Past Medical History: Cancer, Musculoskeletal Disorder, Neurologic Disorder Additional Past Medical History / Comment(s): 2000 Glioblastoma with radiation, then surgery followed by chemotherapy, slight cerebral palsey at -affected motor skills and speech some. History of Any Multi-Drug Resistant Organisms: None Reported Past Surgical History: Orthopedic Surgery Additional Past Surgical History / Comment(s): 1999 Brain surgery, colonoscopy, surgery on femur Past Anesthesia/Blood Transfusion Reactions: No Reported Reaction Past Psychological History: No Psychological Hx Reported Smoking Status: Never smoker Past Alcohol Use History: None Reported Past Drug Use History: None Reported - Past Family History Father Family Medical History: Diabetes Mellitus Mother Family Medical History: Diabetes Mellitus <Parker Calle - Last Filed: 04/05/18 10:25> General Exam <Ronna Pelayo - Last Filed: 04/04/18 21:02> Limitations: no limitations <Parker Calle - Last Filed: 04/05/18 10:25> - General Exam Comments Initial Comments: GENERAL: Patient is well-developed and well-nourished. Patient is nontoxic and well- hydrated and is in mild distress. ENT: Neck is soft and supple. No significant lymphadenopathy is noted. Oropharynx is clear. Moist mucous membranes. Neck has full range of motion without eliciting any pain. EYES: The sclera were anicteric and conjunctiva were pink and moist. Extraocular movements were intact and pupils were equal round and reactive to light. Eyelids were unremarkable. PULMONARY: Unlabored respirations. Good breath sounds bilaterally. No audible rales rhonchi or wheezing was noted. CARDIOVASCULAR: There is a regular rate and rhythm without any murmurs gallops or rubs. ABDOMEN: Soft and nontender with normal bowel sounds. SKIN: Skin is pale NEUROLOGIC: Patient is alert and oriented 3 but as a difficult time expressing himself which she always does but today is much worse according to family. MUSCULOSKELETAL: Normal extremities with adequate strength and full range of motion. LYMPHATICS: No significant lymphadenopathy is noted PSYCHIATRIC: Normal psychiatric evaluation. (Parker Calle) Vital Signs 03/15/18 03/15/18 03/15/18 18:55 22:00 22:32 Temperature 99 F 98.9 F 98.9 F Pulse Rate 68 62 Respiratory 18 19 Rate Blood Pressure 128/82 124/73 O2 Sat by Pulse 97 100 Oximetry Medical Decision Making - Lab Data Result diagrams: 03/15/18 20:07 03/15/18 20:07 <Ronna Pelayo - Last Filed: 04/04/18 21:02> - Lab Data Result diagrams: 03/15/18 20:07 03/15/18 20:07 <Parker Calle - Last Filed: 04/05/18 10:25> - Medical Decision Making Patient care was signed out to me by Dr. Calle Mariia patient had presented with altered mental status, difficulty with speech which is worse than her baseline as well as gait instability. Patient went for a head CT and upon return to her room was more awake, alert and interactive. Patient and daughter both report that this is closer to her baseline. I was contacted by Dr. Cassi Mcneal in radiology who expresses concern for an acute pontine hemorrhage based on abnormalities seen on CT that was not present on her previous MRI. These results were discussed with the patient, at this time I recommended transfer to a facility that has both interventional neurology and neurosurgery. Patient is agreeable. Patient care was discussed with the transfer team an ER physician at [facility] who accepts the transfer. (Ronna Pelayo) EKG shows a normal sinus rhythm at 65 bpm NV interval 142 QRS 74 Q-T intervals 424 QTC is 440. Patient's EKG shows no ST segment elevation or depression or T wave abnormalities are noted. Dr. Pelayo will take over the care of this patient at 9 PM (Parker Calle) - Lab Data Lab Results 03/15/18 03/15/18 03/15/18 Range/Units 20:07 20:07 20:07 WBC 10.1 (3.8-10.6) k/uL RBC 4.42 (3.80-5.40) m/uL Hgb 14.0 (11.4-16.0) gm/dL Hct 41.1 (34.0-46.0) % MCV 93.1 (80.0-100.0) fL MCH 31.8 (25.0-35.0) pg MCHC 34.1 (31.0-37.0) g/dL RDW 12.7 (11.5-15.5) % Plt Count 253 (150-450) k/uL Neutrophils % 72 % Lymphocytes % 19 % Monocytes % 5 % Eosinophils % 1 % Basophils % 0 % Neutrophils # 7.3 (1.3-7.7) k/uL Lymphocytes # 2.0 (1.0-4.8) k/uL Monocytes # 0.5 (0-1.0) k/uL Eosinophils # 0.1 (0-0.7) k/uL Basophils # 0.0 (0-0.2) k/uL PT (9.0-12.0) sec INR (<1.2) APTT (22.0-30.0) sec Sodium 132 L (137-145) mmol/L Potassium 4.2 (3.5-5.1) mmol/L Chloride 101 (98-107) mmol/L Carbon Dioxide 25 (22-30) mmol/L Anion Gap 6 mmol/L BUN 14 (7-17) mg/dL Creatinine 0.44 L (0.52-1.04) mg/dL Est GFR (CKD-EPI)AfAm >90 (>60 ml/min/1.73 sqM) Est GFR (CKD-EPI)NonAf >90 (>60 ml/min/1.73 sqM) Glucose 95 (74-99) mg/dL Calcium 9.4 (8.4-10.2) mg/dL Magnesium 2.2 (1.6-2.3) mg/dL Total Bilirubin 1.1 (0.2-1.3) mg/dL AST 21 (14-36) U/L ALT 25 (9-52) U/L Alkaline Phosphatase 77 (38-126) U/L Total Creatine Kinase 55 (30-135) U/L CK-MB (CK-2) 1.6 (0.0-2.4) ng/mL CK-MB (CK-2) Rel Index 2.9 Troponin I <0.012 (0.000-0.034) ng/mL Total Protein 7.2 (6.3-8.2) g/dL Albumin 4.2 (3.5-5.0) g/dL 03/15/18 Range/Units 20:07 WBC (3.8-10.6) k/uL RBC (3.80-5.40) m/uL Hgb (11.4-16.0) gm/dL Hct (34.0-46.0) % MCV (80.0-100.0) fL MCH (25.0-35.0) pg MCHC (31.0-37.0) g/dL RDW (11.5-15.5) % Plt Count (150-450) k/uL Neutrophils % % Lymphocytes % % Monocytes % % Eosinophils % % Basophils % % Neutrophils # (1.3-7.7) k/uL Lymphocytes # (1.0-4.8) k/uL Monocytes # (0-1.0) k/uL Eosinophils # (0-0.7) k/uL Basophils # (0-0.2) k/uL PT 9.9 (9.0-12.0) sec INR 1.0 (<1.2) APTT 24.5 (22.0-30.0) sec Sodium (137-145) mmol/L Potassium (3.5-5.1) mmol/L Chloride (98-107) mmol/L Carbon Dioxide (22-30) mmol/L Anion Gap mmol/L BUN (7-17) mg/dL Creatinine (0.52-1.04) mg/dL Est GFR (CKD-EPI)AfAm (>60 ml/min/1.73 sqM) Est GFR (CKD-EPI)NonAf (>60 ml/min/1.73 sqM) Glucose (74-99) mg/dL Calcium (8.4-10.2) mg/dL Magnesium (1.6-2.3) mg/dL Total Bilirubin (0.2-1.3) mg/dL AST (14-36) U/L ALT (9-52) U/L Alkaline Phosphatase (38-126) U/L Total Creatine Kinase (30-135) U/L CK-MB (CK-2) (0.0-2.4) ng/mL CK-MB (CK-2) Rel Index Troponin I (0.000-0.034) ng/mL Total Protein (6.3-8.2) g/dL Albumin (3.5-5.0) g/dL Disposition - Out of Hospital Transfer - Req. Specs Out of Hospital Transfer - Requested Specifics: Neurological ICU ([facility] ) <Ronna Pelayo - Last Filed: 04/04/18 21:02> - Out of Hospital Transfer - Req. Specs Out of Hospital Transfer - Requested Specifics: Neurological ICU <Parker Calle - Last Filed: 04/05/18 10:25> Clinical Impression: Pontine hemorrhage Disposition: OTHER INSTITUTION NOT DEFINED Condition: Serious Referrals: Frederick Brandt MD [Primary Care Provider] - 1-2 days
[2018-03-15 20:23] LABS: Basophils % (A) 0 %; Eosinophils # (A) 0.1 k/uL (0-0.7); Eosinophils % (A) 1 %; HCT 41.1 % (34.0-46.0); Lymphocytes % (A) 19 %; MCH 31.8 pg (25.0-35.0); MCHC 34.1 g/dL (31.0-37.0); MCV 93.1 fL (80.0-100.0); Mean Platelet Volume 7.4; Monocytes # (A) 0.5 k/uL (0-1.0); Monocytes % (A) 5 %; Neutrophils # (A) 7.3 k/uL (1.3-7.7); Neutrophils % (A) 72 %; Platelet Count 253 k/uL (150-450); RBC 4.42 m/uL (3.80-5.40); RDW 12.7 % (11.5-15.5); WBC 10.1 k/uL (3.8-10.6)
[2018-03-15 20:32] LABS: Partial Thromboplastin Time 24.5 sec (22.0-30.0); Prothrombin Time 9.9 sec (9.0-12.0)
[2018-03-15 20:34] LABS: ALT 25 U/L (9-52); AST 21 U/L (14-36); Albumin 4.2 g/dL (3.5-5.0); Alkaline Phosphatase 77 U/L (38-126); Anion Gap 6 mmol/L; Blood Urea Nitrogen 14 mg/dL (7-17); Calcium 9.4 mg/dL (8.4-10.2); Carbon Dioxide 25 mmol/L (22-30); Chloride 101 mmol/L (98-107); Glucose 95 mg/dL (74-99); Magnesium 2.2 mg/dL (1.6-2.3); Potassium 4.2 mmol/L (3.5-5.1); Sodium 132 mmol/L (137-145); Total Bilirubin 1.1 mg/dL (0.2-1.3); Total Protein 7.2 g/dL (6.3-8.2)
[2018-03-15 20:49] LABS: Creatine Kinase 55 U/L (30-135)
[2018-03-15 21:01] LABS: Creatine Kinase MB 1.6 ng/mL (0.0-2.4); Troponin I <0.012 ng/mL (0.000-0.034)
--- NOTE | 2018-03-15 21:20 | CT ---
EXAMINATION TYPE: CT brain wo con DATE OF EXAM: 03/15/2018 COMPARISON: MR scan 05/12/2016. HISTORY: Confusion. Fall injury CT DLP: 1176.4 mGycm Automated exposure control for dose reduction was used. FINDINGS: There is hypodensity in the left middle cranial fossa consistent with old left temporal lobe infarct. There is old temporal craniotomy defect. There is no mass effect nor midline shift. There is some mi nimal 5 mm focus of increased density in the posterior racquel. This could be acute hemorrhage. There is hypodensity in the left internal capsule. There is enlargement of the left lateral ventricle compare d to the right. 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 Previous surgery. Increased density posterior racquel could be vascular malformation or acute hemorrhage. Comparison with an old CT scan exam would be helpful. I do not see an abnormality in this area on the MR scan of 05/12/2016 and therefore this is more likely acu te hemorrhage. This exam was discussed with ER physician at 4:20 PM.
--- NOTE | 2018-03-15 21:27 | XR ---
EXAMINATION TYPE: XR chest 2V DATE OF EXAM: 03/15/2018 COMPARISON: 08/13/2016 HISTORY: Altered mental status. Fall. TECHNIQUE: Frontal and lateral views of the chest are obtained. FINDINGS: Heart and mediastinum are normal. Lungs are clear of infiltrate. There is no pleural effus ion. There is mild pleural thickening at the lung apices. There are chest leads. IMPRESSION: No active cardiopulmonary disease. Normal heart. No change.
[2018-03-15 22:11] VITALS: BP 124/73; PULSE 62; RESP 19; TEMP 98.9
[2018-03-15] MEDS ORDERED: SODIUM CHLORIDE 0.9% 1,000 ML IV STA (22:14)
== END 2018-03-15 22:32 | disposition other institution (70) ==
LOC: EC 18:53
DX: S06.380A Contusion, laceration, and hemorrhage of brainstem without loss of consciousness, initial encounter (principal); W18.09XA Striking against other object with subsequent fall, initial encounter; Z79.82 Long term (current) use of aspirin; Z79.899 Other long term (current) drug therapy; Z88.8 Allergy status to other drugs, medicaments and biological substances; Z85.841 Personal history of malignant neoplasm of brain
CPT/HCPCS: 36415; 70450; 71046; 80053; 82550; 82553; 83735; 84484; 85025; 85610; 85730; 93005; 99285

== ENCOUNTER → 2018-05-24 | Outpatient (CLI) | payer BC ==
--- NOTE | 2018-05-24 14:37 | MR ---
EXAMINATION TYPE: MR brain wo/w con DATE OF EXAM: 05/24/2018 COMPARISON: Prior MRI brain May 12, 2016 and older MRIs HISTORY: Malignant neoplasm of brain / Astrocytoma TECHNIQUE: Multiplanar, multisequence images of the brain and brainstem is performed without and with IV contras t, utilizing 6 mL intravenous Gadavist . FINDINGS: Diffusion weighted images demonstrate no evidence of a recent infarct or other diffusion ab normality. There is persistent postsurgical change to the left temporal lobe with the anterior middl e cranial fossa resection and left temporal craniotomy. There is persistent T2 hyperintensity in the adjacent left temporal lobe likely reflecting chronic leukomalacia. No significant change or new susp icious signal to suggest edema is noted. There is persistent but stable ex vacuo dilatation of the le ft sided ventricular system. No midline shift is identified. There is persistent focal and confluent areas of T2 hyperintensity in the deep and periventricular white matter consistent with product of ch ronic small vessel ischemic change with superior posterior left frontal lobe extension redemonstrated . The craniocervical junction remains within normal limits. Post contrast images demonstrate no new ar eas of suspicious or abnormal enhancement. The dural venous sinuses appear patent. The visualized sin uses are clear and the globes are intact. IMPRESSION: Overall stable findings, posttreatment changes to left temporal region redemonstrated. Ba ckground moderate chronic small vessel ischemic change redemonstrated. No significant change from MRI studies back to May 07, 2014.
== END | disposition home or self-care (01) ==
LOC: RADMRIMAIN 12:26
PROVIDERS: ATTEND Internal Medicine Hematology & Oncology
DX: I67.82 Cerebral ischemia (principal); C71.9 Malignant neoplasm of brain, unspecified; Z98.890 Other specified postprocedural states
CPT/HCPCS: 82565; 70553; 36415; A9585

== ENCOUNTER → 2019-02-21 | Outpatient (CLI) | payer BC ==
--- NOTE | 2019-02-23 10:35 | MM ---
Reason for exam: screening (asymptomatic). Last mammogram was performed 1 year ago. History: Patient is postmenopausal and has history of other cancer at age 39. Physical Findings: A clinical breast exam by your physician is recommended on an annual basis and results should be correlated with mammographic findings. MG Screening Mammo w CAD Bilateral CC and MLO view(s) were taken. Prior study comparison: February 13, 2018, bilateral MG screening mammo w CAD. March 18, 2016, bilateral MG screening mammo w CAD. The breast tissue is heterogeneously dense. This may lower the sensitivity of mammography. No significant changes when compared with prior studies. ASSESSMENT: Benign, BI-RAD 2 RECOMMENDATION: Routine screening mammogram of both breasts in 1 year.
== END | disposition home or self-care (01) ==
LOC: RADMAMWWP 15:15
PROVIDERS: ATTEND Family Medicine
DX: Z12.31 Encounter for screening mammogram for malignant neoplasm of breast (principal)
CPT/HCPCS: 77067

== ENCOUNTER → 2019-07-11 | Outpatient (CLI) | payer BC ==
--- NOTE | 2019-07-11 21:33 | MR ---
EXAMINATION TYPE: MR brain wo/w con DATE OF EXAM: 07/11/2019 COMPARISON: Prior MRI brain May 14, [address] brain March 15, [address] and MRI studies. HISTORY: Astrocytoma, rt side weakness TECHNIQUE: Multiplanar, multisequence images of the brain and brainstem is performed without and with IV contras t, utilizing 7.5 mL intravenous Gadavist . FINDINGS: Diffusion weighted images demonstrate no evidence of a recent infarct or other diffusion ab normality. There is persistent surgical change anterior middle cranial fossa at the level of the lef t temporal lobe with resection cavity and craniotomy changes. Persistent adjacent T2 hyperintensity i n the left temporal lobe posteriorly extending superiorly without significant change from prior MRI s uggesting chronic leukomalacia. Asymmetric ex vacuo dilatation of the left ventricular system is rede monstrated and stable. Persistent areas of focal and confluent T2 hyperintensity throughout the deep and periventricular white matter again seen with posterior left frontal superior subcortical extensio n redemonstrated axial image 23. Midline structures redemonstrate normal morphology. The craniocervical junction appears within sagar l limits. Post contrast images demonstrate no new areas of abnormal enhancement with particular atte ntion to the brain parenchyma near site of surgery left temporal region. The dural venous sinuses rayo ear patent. The visualized sinuses remain clear and the globes are intact. IMPRESSION: Overall stable findings, posttreatment changes to left temporal region redemonstrated. Ba ckground moderate chronic small vessel ischemic change redemonstrated. No significant change from MRI studies back through May 07, 2014. In particular no new areas of suspicious edema or enhancemen t noted.
== END | disposition home or self-care (01) ==
LOC: RADMRIMAIN 18:36
PROVIDERS: ATTEND Internal Medicine Hematology & Oncology
DX: I67.82 Cerebral ischemia (principal); C71.9 Malignant neoplasm of brain, unspecified; Z98.890 Other specified postprocedural states
CPT/HCPCS: 70553; A9585

== ENCOUNTER → 2020-03-26 | Outpatient (CLI) | payer OTHER ==
--- NOTE | 2020-03-27 09:31 | MM ---
Reason for exam: screening (asymptomatic). Last mammogram was performed 1 year and 1 month ago. History: Patient is postmenopausal and has history of other cancer at age 39. Physical Findings: A clinical breast exam by your physician is recommended on an annual basis and results should be correlated with mammographic findings. MG Screening Mammo w CAD Bilateral CC and MLO view(s) were taken. Prior study comparison: February 21, 2019, bilateral MG screening mammo w CAD. February 13, 2018, bilateral MG screening mammo w CAD. The breast tissue is heterogeneously dense. This may lower the sensitivity of mammography. No significant changes when compared with prior studies. ASSESSMENT: Benign, BI-RAD 2 RECOMMENDATION: Routine screening mammogram of both breasts in 1 year.
== END | disposition home or self-care (01) ==
LOC: RADMAMWWP 16:09
PROVIDERS: ATTEND Family Medicine
DX: Z12.31 Encounter for screening mammogram for malignant neoplasm of breast (principal)
CPT/HCPCS: 77067

== ENCOUNTER → 2020-08-01 | Outpatient (CLI) | payer BC ==
--- NOTE | 2020-08-01 16:35 | MR ---
EXAMINATION TYPE: MR brain wo/w con DATE OF EXAM: 08/01/2020 COMPARISON: 07/11/2019 HISTORY: Follow up on astrocytoma, surgery in 2000. CONTRAST: Performed utilizing 6 mL intravenous Gadavist gadolinium contrast. TECHNIQUE: Multiplanar, multiecho imaging on a 3.0 Tasia magnet is performed through the brain. Stud y is performed within 24 hours of arrival to the hospital. The craniovertebral junction is normal. The pituitary is normal. Diffusion-weighted imaging is performed. No abnormal hyperintensity is present to suggest an acute i ntracranial infarct or acute ischemic change. The anterior left temporal lobe resection is evident. The white matter changes within the left tempor al lobe adjacent to the surgical site are stable from comparison. No abnormal enhancement of the ante rior surgical resection border is evident. Findings appear stable from comparison. There is some slight prominence of the left lateral ventricle in relation to the right with some prom inence of the temporal horn of the lateral ventricle. These findings are stable from the comparison. Remainder of the brain included within the [id number]-sa-[id number] has normal enhancement. There is some mild p rominence of the ventricles and sulci compatible some age-related atrophy. Periventricular white dayami er changes are evident likely on the basis of chronic white matter ischemic changes. These changes ar e stable over the interval. IMPRESSIONS: 1. Stable post surgical changes left anterior temporal lobe. No suspicious enhancement or changes in white matter signal are evident to suggest recurrence at this time. 2. Stable appearing chronic periventricular white matter ischemic changes with atrophy.
== END | disposition home or self-care (01) ==
LOC: RADMRIMAIN 14:45
PROVIDERS: ATTEND Internal Medicine Hematology & Oncology
DX: I67.82 Cerebral ischemia (principal)
CPT/HCPCS: 70553; A9585

== ENCOUNTER → 2021-03-30 | Outpatient (CLI) | payer BC ==
--- NOTE | 2021-03-30 20:47 | BD ---
EXAMINATION TYPE: Axial Bone Density DATE OF EXAM: 03/30/2021 COMPARISON: 2017 CLINICAL HISTORY: disorder of bone Height: 5'4 Weight: 130 FRAX RISK QUESTIONS: Secondary Osteoporosis: RISK FACTORS HISTORY OF: Hip Fracture (Left): left When: 2017 Surgery to /Hip(left)/: left When: 2017 Active: no Postmenopausal woman: y MEDICATIONS: Additional Medications: pt memory loss Additional History: cancer , brain 2000 EXAM MEASUREMENTS: Bone mineral densitometry was performed using the [employer] System. Bone mineral density as measured about the Lumbar spine is: ----- L1-L4(G/cm2): 0.860 T Score Values are as follows: ----- L2: -2.7 ----- L3: -2.1 ----- L4: -3.3 ----- L1-L4: -2.7 Bone mineral density has: Increased 7.1% since study of: 10/19/2016 Bone mineral density about the R hip (g/cm2): 0.588 T Score values are as follows: -----R Neck: -3.2 -----R Total: -3.5 Bone mineral density has: Decreased -1.1% since study of: 10/19/2016 IMPRESSION: Osteoporosis (T Score less than -2.5). There is increased fracture risk and therapy is usually indicated based on age. Re-Screen 1-2 years. NOTE: T-SCORE=SD OF THE YOUNG ADULT MEAN.
--- NOTE | 2021-03-31 14:08 | MM ---
Reason for exam: screening (asymptomatic). Last mammogram was performed 1 year ago. History: Patient is postmenopausal and has history of other cancer at age 39. Physical Findings: A clinical breast exam by your physician is recommended on an annual basis and results should be correlated with mammographic findings. MG Screening Mammo w CAD Bilateral CC and MLO view(s) were taken. Prior study comparison: March 26, 2020, bilateral MG screening mammo w CAD. February 21, 2019, bilateral MG screening mammo w CAD. The breast tissue is heterogeneously dense. This may lower the sensitivity of mammography. Finding: There are typically benign round, grouped/clustered calcifications in the upper outer quadrant of the left breast. There is no discrete abnormality. ASSESSMENT: Benign, BI-RAD 2 RECOMMENDATION: Routine screening mammogram of both breasts in 1 year.
== END | disposition home or self-care (01) ==
LOC: RADMAMWWP 09:35
PROVIDERS: ATTEND Family Medicine
DX: Z12.31 Encounter for screening mammogram for malignant neoplasm of breast (principal); M81.0 Age-related osteoporosis without current pathological fracture; R92.1 Mammographic calcification found on diagnostic imaging of breast; Z78.0 Asymptomatic menopausal state
CPT/HCPCS: 77067; 77080

== ENCOUNTER → 2021-08-19 | Outpatient (CLI) | payer BC ==
--- NOTE | 2021-08-20 04:38 | MR ---
EXAMINATION TYPE: MR brain wo/w con DATE OF EXAM: 08/19/2021 COMPARISON: 08/01/2020 HISTORY: Malignant neoplasm of brain CONTRAST: Standard multiplanar, multisequence MRI departmental protocol images were obtained without contrast a nd with 6 mL intravenous Gadavist gadolinium contrast. There is 4.5 cm area of fluid signal involving the left middle cranial fossa consistent with postsurg ical changes and encephalomalacia in the left anterior temporal lobe. There is no mass effect. There is some asymmetric enlargement of the left lateral ventricle. There is cerebral atrophy. On the FLAIR images there is patchy extensive abnormal increased signal in the periventricular white matter with coalescent areas that measure up to 1.5 cm. There is slight increased signal in the anterior aspect of the left cerebral peduncle on the T2 and F LAIR images consistent with ischemic change. The diffusion images show no evidence of an acute infarc t. There is normal enhancement of the venous sinuses. I see no pathologic enhancement. There is signific ant thinning of the corpus callosum. There is cerebellar atrophy. The sella turcica is intact. There is no evidence of orbital mass. IMPRESSION: Postsurgical changes with encephalomalacia left temporal lobe. No pathologic enhancement seen to sugg est recurrent tumor. Cerebral atrophy. Moderate white matter signal changes consistent with microvasc ular ischemia and lacunar infarcts without change compared to old exam.
== END | disposition home or self-care (01) ==
LOC: RADMRIMAIN 09:48
PROVIDERS: ATTEND Internal Medicine Hematology & Oncology
DX: G93.89 Other specified disorders of brain (principal); G31.9 Degenerative disease of nervous system, unspecified; I67.82 Cerebral ischemia; I63.81 Other cerebral infarction due to occlusion or stenosis of small artery
CPT/HCPCS: 70553; A9585

== ENCOUNTER → 2021-10-08 | Outpatient (CLI) | payer BC ==
[2021-10-08 14:32] LABS: Basophils # (A) 0.04 X 10*3/uL (0.00-0.10); Basophils % (A) 0.7 %; Eosinophils # (A) 0.12 X 10*3/uL (0.04-0.35); HCT 39.9 % (37.2-46.3); HGB 12.8 g/dL (12.0-15.0); Immature Grans, Automated 0.3 %; Lymphocytes # (A) 1.68 X 10*3/uL (0.90-5.00); Lymphocytes % (A) 28.1 %; MCH 30.8 pg (27.0-32.0); MCHC 32.1 g/dL (32.0-37.0); MCV 96.1 fL (80.0-97.0); Mean Platelet Volume 11.3 fL (9.5-12.2); Monocytes # (A) 0.57 X 10*3/uL (0.20-1.00); Monocytes % (A) 9.5 %; NRBC Per 100 WBC 0 /100 WBCS (0.0-0.0); Neutrophils # (A) 3.54 X 10*3/uL (1.80-7.70); Neutrophils % (A) 59.4 %; Platelet Count 222 X 10*3/uL (140-440); RBC 4.15 X 10*6/uL (4.10-5.20); RDW 12.3 % (11.5-14.5); WBC 5.97 X 10*3/uL (4.50-10.00)
[2021-10-08 14:50] LABS: ALT 12 U/L (8-44); AST 19 U/L (13-35); African American GFR (CKD) 106.9 (60.0-200.0); Albumin 4.3 g/dL (3.8-4.9); Albumin/Globulin Ratio 1.54 (1.60-3.17); Alkaline Phosphatase 79 U/L (41-126); BUN/Creat Ratio 20.14 Ratio (12.00-20.00); Blood Urea Nitrogen 14.1 mg/dL (9.0-27.0); Calcium 9.5 mg/dL (8.7-10.3); Carbon Dioxide 27.2 mmol/L (20.0-27.5); Chloride 103 mmol/L (96-109); Chol/HDL Ratio 4.19 Ratio; Globulin 2.8 g/dL (1.6-3.3); Glucose 90 mg/dL (70-110); LDL Cholesterol,Calculated 75.2 mg/dL (0.0-131.0); Non-African American GFR(CKD) 92.2 (60.0-200.0); Potassium 3.9 mmol/L (3.5-5.5); Sodium 141 mmol/L (135-145); Total Protein 7.1 g/dL (6.2-8.2)
== END | disposition home or self-care (01) ==
LOC: LABWHC1 10:08
PROVIDERS: ATTEND Family Medicine
DX: Z00.01 Encounter for general adult medical examination with abnormal findings (principal); E78.2 Mixed hyperlipidemia; G40.89 Other seizures; R20.2 Paresthesia of skin; R63.5 Abnormal weight gain; Z74.09 Other reduced mobility
CPT/HCPCS: 36415; 80053; 80061; 82306; 84443; 85025

== ENCOUNTER 2021-10-10 17:51 | Inpatient (IN) | payer BC ==
[2021-10-10] MEDS ORDERED: NALOXONE 0.4 MG/ML 1 ML VIAL IV PRN (18:23)
--- NOTE | 2021-10-10 18:23 | ED ---
General Adult HPI - General Chief complaint: Neuro Symptoms/Deficit Stated complaint: confusion, neuro issue Time Seen by Provider: 10/10/21 17:58 Source: family, RN notes reviewed, old records reviewed (Results reviewed from [place] [facility] on [address]. This includes blood work, UA, chest x-ray results and CT results) Mode of arrival: ambulatory Limitations: altered mental status, physical limitation - History of Present Illness Initial comments: Patient is a pleasant 61-year-old female presenting to the emergency department with change in mental status. Symptoms have been present for the past couple of days. A caicedo has limited speech that has progressively worsened. Patient also seems to have some right arm weakness. Patient has been more drowsy. Patient does have remote history of brain tumor in 1999. Patient only had minimal speech problems and needed to use a walker after that time. Patient has limited ability daily with a walker at this time. Patient did go to urgent care and had brain CT and blood work and x-ray and urinalysis done. They were concerned for urinary tract infection and did want to transfer patient however they were unable to do so. Patient only answers yes and is unable to provide a significant history at this time. - Related Data Home Medications Medication Instructions Recorded Confirmed Ergocalciferol (Vitamin D2) 50,000 unit PO Q30D 08/13/16 03/15/18 [Vitamin D2] Alendronate Sodium [Fosamax] 70 mg PO FR 09/29/17 03/15/18 Aspirin [Adult Low Dose Aspirin EC] 81 mg PO DAILY 09/29/17 03/15/18 Allergies Allergy/AdvReac Type Severity Reaction Status Date / Time carbamazepine [From Tegretol] Allergy Rash/Hives Verified 10/10/21 17:58 phenytoin [From Dilantin] Allergy Rash/Hives Verified 10/10/21 17:58 Review of Systems ROS Statement: Those systems with pertinent positive or pertinent negative responses have been documented in the HPI. ROS Other: All systems not noted in ROS Statement are negative. Limitations: ROS unobtainable due to patients medical condition Past Medical History Past Medical History: Cancer, Musculoskeletal Disorder, Neurologic Disorder Additional Past Medical History / Comment(s): 1999 Glioblastoma with radiation, then surgery followed by chemotherapy, slight cerebral palsey at -affected motor skills and speech some. History of Any Multi-Drug Resistant Organisms: None Reported Past Surgical History: Orthopedic Surgery Additional Past Surgical History / Comment(s): 2000 Brain surgery, colonoscopy, surgery on femur Past Anesthesia/Blood Transfusion Reactions: No Reported Reaction Past Psychological History: No Psychological Hx Reported Smoking Status: Never smoker Past Alcohol Use History: None Reported Past Drug Use History: None Reported - Past Family History Father Family Medical History: Diabetes Mellitus Mother Family Medical History: Diabetes Mellitus General Exam Limitations: no limitations General appearance: other (Drowsy. Arousable to voice. Answers questions inappropriately. Difficult if following commands.) Head exam: Present: atraumatic Eye exam: Present: normal appearance, PERRL ENT exam: Present: normal oropharynx Neck exam: Present: normal inspection. Absent: tenderness, meningismus Respiratory exam: Present: normal lung sounds bilaterally Cardiovascular Exam: Present: regular rate, normal rhythm GI/Abdominal exam: Present: soft. Absent: tenderness Extremities exam: Present: normal inspection Neurological exam: Present: altered Expanded Neurological exam: Present: protecting the airway, other (Unable to cornea. Only answers yes. Follow some commands. Questionable minimal right facial droop which family feels is probably chronic.) Motor strength exam: RUE: 4, LUE: 5, RLE: 3, LLE: 3 Eye Response: (3) open to voice Motor Response: (6) obeys commands Verbal Response: (3) inappropriate words Psychiatric exam: Present: flat affect Skin exam: Present: normal color Course Vital Signs 10/10/21 17:53 Temperature 99.4 F Pulse Rate 89 Respiratory 20 Rate Blood Pressure 156/77 O2 Sat by Pulse 99 Oximetry Medical Decision Making - Medical Decision Making Patient with possible urinary tract infection, we started with IV antibiotics. There is concern for neurological changes and Dr. William has been paged for admission covering Dr. Elaine. Neurology will need to be placed on consult. Case was discussed with practitioner Robert, who will admit. Disposition Clinical Impression: Altered mental status, Urinary tract infection Disposition: ADMITTED IP TO THIS HOSP Is patient prescribed a controlled substance at d/c from ED?: No Referrals: Morro Elaine III, MD [Primary Care Provider] - 1-2 days Time of Disposition: 18:22
[2021-10-10] MEDS: SODIUM CHLORIDE 0.9% 1,000 ML IV SCH (21:36)
[2021-10-10] MEDS: levETIRAcetam 500 MG TAB PO SCH (23:51)
--- NOTE | 2021-10-11 07:06 | XR ---
EXAMINATION TYPE: XR chest 1V DATE OF EXAM: 10/11/2021 COMPARISON: Acute mental status change HISTORY: 03/15/2018 TECHNIQUE: Single frontal view of the chest is obtained. FINDINGS: There is no focal air space opacity, pleural effusion, or pneumothorax seen. The cardiac silhouette size is within normal limits. The osseous structures are intact. IMPRESSION: No acute process.
[2021-10-11] MEDS: PANTOPRAZOLE 40 MG/10 ML VIAL IV SCH (08:11)
[2021-10-11] MEDS: levETIRAcetam 500 MG TAB PO SCH (08:11)
--- NOTE | 2021-10-11 09:25 | P.HPIM ---
History of Present Illness This is a pleasant 61 years old female with past medical history of seizure and osteoporosis hyperlipidemia, 2000 Glioblastoma with radiation, then surgery followed by chemotherapy, mild cerebral palsy at Because of her dysphagia information were obtained with the help of the son and has been at bedside. As per son to Tuesday evening patient son noticed that she has difficulty using her right hand which keep it in the office and also she has difficulty finding words more than usual, next day which was yesterday noticed patient was taken intubated in the morning which is unusual for her and her right side was still weak and her dysphagia was still bed with no improvement so he got concerned and brought her to the hospital first at [facility] before the transfer to this facility. as per son patient has history of stroke and she has mild degree of weakness and worked finding difficulty but it was worse over the last 2 days. however they think both dysphagia and right arm and leg weakness looks better today also she was complaining of from mild dysuria yesterday patient reports headache for last 2 days about 60/10, nonspecific with no numbness or dizziness. she vomited once yesterday but she has no chest pain or dyspnea, no abdominal pain or diarrhea. no history of smoking, alcohol or illicit drugs pt went to [facility] and tried to get transfered here but stated they could not get a direct admit so they told family to bring her here. Pts son states she has UTI and as far as they know the ct was negative. Pt also has newer onset seizures but has not had any recently. pts son states he started to notice patient was unable to communicate as well as normal and also was not using her right hand as much as normal. Pt is slower to respond and has limited responses per son. Vitals are stable. Creatinine kinase is 179, troponin are negative less than 0.012. On reviewing the records from [facility] Troponin is 0.01. Salicylate less than 5, alcohol less than 10, magnesium 2.1, WBCs 10.2, hemoglobin 14.1, platelet 245 Chest x-ray report showing prominent interstitial markings bilaterally which are nonspecific and could represent fibrotic change. However no prior study are available for comparison. Alternatively these finding culture present interstitial pneumonia per radiologist CT of the head without contrast showing no acute intracranial hemorrhage, left temporal lobe and basal ganglia remote infarcts noted and advanced cerebral volume loss, with chronic changes Lactic acid 1.6. Sodium 137, potassium 4.6, glucose 110, creatinine 0.7, calcium 9.8 AST 20, ALT 17, total bilirubin 0.6 Urinalysis showing yellow clear urine with positive nitrates and WBCs 11-20, actually patient received 1 dose of ceftriaxone and [facility] Urine drug screen is negative INR is 1.0 Review of Systems CONSTITUTIONAL: No fever, no malaise, no fatigue. HEENT: No recent visual problems or hearing problems. Denied any sore throat. CARDIOVASCULAR: No orthopnea, PND, no palpitations, no syncope. PULMONARY: No shortness of breath, no cough, no hemoptysis. GASTROINTESTINAL: No diarrhea, no nausea, no vomiting, no abdominal pain. Normoactive bowel sounds. NEUROLOGICAL: No dizziness, no numbness. HEMATOLOGICAL: Denies any bleeding or petechiae. GENITOURINARY: Denies any burning micturition, frequency, or urgency. MUSCULOSKELETAL/RHEUMATOLOGICAL: Denies any joint pain, swelling, or any muscle pain. ENDOCRINE: Denies any polyuria or polydipsia. Past Medical History Past Medical History: Cancer, Musculoskeletal Disorder, Neurologic Disorder, Seizure Disorder Additional Past Medical History / Comment(s): 1999 Glioblastoma with radiation, then surgery followed by chemotherapy, slight cerebral palsey at -affected motor skills and speech some. History of Any Multi-Drug Resistant Organisms: None Reported Past Surgical History: Orthopedic Surgery Additional Past Surgical History / Comment(s): 1999 Brain surgery, colonoscopy, surgery on femur Past Anesthesia/Blood Transfusion Reactions: No Reported Reaction Past Psychological History: No Psychological Hx Reported Additional Psychological History / Comment(s): Pt resides with her spouse. She has a cane and walker for ambulation. She drives only in the mornings. Smoking Status: Never smoker Past Alcohol Use History: None Reported Past Drug Use History: None Reported - Past Family History Father Family Medical History: Diabetes Mellitus Mother Family Medical History: Diabetes Mellitus Medications and Allergies Home Medications Medication Instructions Recorded Confirmed Type Ergocalciferol (Vitamin D2) 50,000 unit PO Q30D 08/13/16 10/10/21 History [Vitamin D2] Alendronate Sodium [Fosamax] 70 mg PO Q7D 09/29/17 10/10/21 History Aspirin [Adult Low Dose Aspirin EC] 81 mg PO DAILY 09/29/17 10/10/21 History Atorvastatin Calcium [Lipitor] 20 mg PO DAILY 10/10/21 10/10/21 History Baclofen [Lioresal] 10 mg PO Q12H 10/10/21 10/10/21 History Cyanocobalamin [Vitamin B-12] 500 mcg PO DAILY 10/10/21 10/10/21 History Multivitamins, Thera [Multivitamin 1 tab PO DAILY 10/10/21 10/10/21 History (formulary)] levETIRAcetam [Keppra] 500 mg PO Q12HR 10/10/21 10/10/21 History Allergies Allergy/AdvReac Type Severity Reaction Status Date / Time carbamazepine [From Tegretol] Allergy Rash/Hives Verified 10/10/21 19:01 phenytoin [From Dilantin] Allergy Rash/Hives Verified 10/10/21 19:01 Physical Exam Vitals: Vital Signs Temp Pulse Pulse Resp BP BP Pulse Ox 10/11/21 04:07 98.5 F 79 16 131/70 99 10/10/21 23:55 98.2 F 83 16 136/78 97 10/10/21 22:25 98.9 F 88 17 133/68 97 10/10/21 17:53 99.4 F 89 20 156/77 99 Intake and Output 10/10/21 10/11/21 10/11/21 22:59 06:59 14:59 Output Total 180 Balance -180 Output: Urine 180 Other: Voiding Method External Catheter Weight 58.967 kg 58.967 kg GENERAL: The patient is alert and oriented x3, not in any acute distress. Well developed, well nourished. HEENT: Pupils are round and equally reacting to light. EOMI. No scleral icterus. No conjunctival pallor. Normocephalic, atraumatic. No pharyngeal erythema. No thyromegaly. CARDIOVASCULAR: S1 and S2 present. No murmurs, rubs, or gallops. PULMONARY: Chest is clear to auscultation, no wheezing or crackles. ABDOMEN: Soft, nontender, nondistended, normoactive bowel sounds. No palpable organomegaly. MUSCULOSKELETAL: No joint swelling or deformity. EXTREMITIES: No cyanosis, clubbing, or pedal edema. -NEUROLOGICAL: Right facial droop, right hemiparesis with right upper and lower extremity weaker than the left side. Meningeal signs are absent SKIN: No rashes. No petechiae Results Labs: Abnormal Lab Results - Last 24 Hours (Table) 10/10/21 Range/Units 18:47 Creatine Kinase 179 H (30-135) U/L Thrombosis Risk Factor Assmnt - Choose All That Apply Any of the Below Risk Factors Present?: No Other Risk Factors: Yes Each Risk Factor Represents 2 Points: Age 61-74 years Other congenital or acquired thrombophilia - If yes, enter type in comment: No Thrombosis Risk Factor Assessment Total Risk Factor Score: 2 Thrombosis Risk Factor Assessment Level: Low Risk Assessment and Plan Assessment: Acute urinary tract infection Worsening right hemiparesis and expressive dysphasia could be secondary to her UTI, however rule out recurrent stroke versus others History of seizure History of left temporal lobe and basal ganglia infarct, with possible chronic mild right hemiparesis and dysphagia History of osteoporosis History of brain tumor with glioblastoma status post radiotherapy and chemotherapy. Status post surgical resection Plan: This is a pleasant 61 years old female who presents with UTI, AMS Continue gentle hydration Recheck urinalysis and bladder scan Start ceftriaxone Follow-up urine culture Neurology consult Continue with aspirin Hold baclofen Continue with Keppra Labs and medication were reviewed.. Continue same treatment. Continue with symptomatic treatment. Resume home medication. Monitor lytes and vitals. DVT and GI prophylaxis. Further recommendations depends on the clinical course of the patient DVT prophylaxis: Subcutaneous heparin GI Prophylaxis: Pepcid PT/OT: Pending. Also check a swallow evaluation` Prognosis is guarded
[2021-10-11] MEDS ORDERED: NON FORMULARY DRUG (Alendronate Sodium [Fosamax] 70 MG Tablet) PO SCH (09:30)
[2021-10-11 11:34] LABS: Basophils # (A) 0.03 X 10*3/uL (0.00-0.10); Basophils % (A) 0.4 %; Eosinophils # (A) 0.05 X 10*3/uL (0.04-0.35); Eosinophils % (A) 0.7 %; HGB 12.7 g/dL (12.0-15.0); Immature Grans, Automated 0.4 %; Lymphocytes # (A) 2.33 X 10*3/uL (0.90-5.00); Lymphocytes % (A) 33.4 %; MCH 31.4 pg (27.0-32.0); MCHC 33.4 g/dL (32.0-37.0); MCV 94.1 fL (80.0-97.0); Monocytes # (A) 0.87 X 10*3/uL (0.20-1.00); Monocytes % (A) 12.5 %; NRBC Per 100 WBC 0 /100 WBCS (0.0-0.0); Neutrophils # (A) 3.66 X 10*3/uL (1.80-7.70); Neutrophils % (A) 52.6 %; Platelet Count 201 X 10*3/uL (140-440); RBC 4.04 X 10*6/uL (4.10-5.20); RDW 12.5 % (11.5-14.5); WBC 6.97 X 10*3/uL (4.50-10.00)
[2021-10-11 11:56] LABS: African American GFR (CKD) 114.6 (60.0-200.0); Albumin/Globulin Ratio 1.84 (1.60-3.17); Anion Gap 10.7 mmol/L (10.00-18.00); BUN/Creat Ratio 20.49 Ratio (12.00-20.00); Blood Urea Nitrogen 11.6 mg/dL (9.0-27.0); Calcium 8.9 mg/dL (8.7-10.3); Carbon Dioxide 20.7 mmol/L (20.0-27.5); Globulin 2.2 g/dL (1.6-3.3); Non-African American GFR(CKD) 98.9 (60.0-200.0); Potassium 4.1 mmol/L (3.5-5.5); Total Protein 6.2 g/dL (6.2-8.2)
[2021-10-11] MEDS: ASPIRIN 81 MG PO SCH (12:24)
[2021-10-11] MEDS: ATORVASTATIN 20 MG TAB PO SCH (12:24)
[2021-10-11] MEDS: HEPARIN SODIUM,PORCINE/PF 5,000 UNIT/0.5 ML SYRINGE SQ SCH ×2 (12:24→21:18)
[2021-10-11] MEDS: SODIUM CHLORIDE 0.9% 1,000 ML IV SCH ×2 (12:25→21:18)
--- NOTE | 2021-10-11 13:54 | P.CNNES ---
History of Present Illness Consult date: 10/11/21 Requesting physician: James Avendaño Reason for Consult: ams, ? cva v other History of Present Illness: Patient is a 61-year-old right-handed female came to the hospital yesterday at 5:51 PM for evaluation of speech difficulty, rule out seizure. Patient has history of glioblastoma multiform surgery involving left temporal region in 1999 followed by 2 rounds of radiation in 1 round of chemotherapy. Fortunately the tumor never or legs. She has been having yearly MRIs for surveillance. The tumor has been in remission. Last year, in November and then in March 2021 she had 2 similar spells, in which for several hours she was not able to communicate verbally, was slightly confused, disoriented, able to unde rstand everything, but not able to express, except able to express yes/no response. These episodes lasted for several hours and then she would be very fatigued for about another 12-16 hours. After sleeping overnight, she would be back to normal the next day. After the second event in March 2021, patient was started on Keppra 500 mg twice a day, as according to families report, her EEG revealed "increased activity over the left frontal lobe". Patient has been stable, with no further spells. Yesterday patient had a similar spell but it started the day prior on Tuesday evening, but was mild at onset. Yesterday on Tuesday, she was more worse, speech slow down, movements slowed down on the right side and she was weaker on the right with stiffness worse than the baseline. Patient was still able to understand everything, but not able to express except for saying "yes", "no". This event was similar to the previous 2 spells. Family took the patient to [facility] ER, where she underwent workup as mentioned below. Patient was recommended to be admitted to the hospital, therefore the family brought her to [facility]. Today patient has improved, but not back to normal yet. She is about 70% back to baseline. Vital signs on arrival blood pressure 156/77, pulse 89 temperature 99.4. Blood test shows normal CBC, CMP, troponin is negative, coronal virus PCR negative. CK is borderline 179. TSH normal. Chest x-ray showed no acute process. Patient's last MRI of the brain with and without contrast from 08/19/2021 revealed post surgical changes with encephalomalacia left temporal lobe. No pathologic enhancement seen to suggest suggest recurrent tumor. Cerebral atrophy. Moderate white matter signal changes, consistent with microvascular ischemia and lacunar infarcts without change compared to old exam. Patient's home medications include aspirin 81 mg, Fosamax 70 mg every 7 days, baclofen, Keppra 500 mg every 12 hour, Lipitor 20 mg, multivitamin and B12. No previous history of tobacco, alcoholism, hypertension or diabetes. Records from [facility]: Troponin negative acetaminophen level, salicylate, blood alcohol level all normal. Magnesium 2.1, phosphorus 2.8 CBC with WBC 10.2, hemoglobin 14.1, platelet 245. Chest x-ray showed prominent interstitial markings bilaterally which are nonspecific and could represent fibrotic change. However no prior studies are available for comparison. Alternatively, these findings could be seen with interstitial pneumonia in the appropriate clinical setting. CT head without contrast revealed no acute intracranial hemorrhage. Left temporal lobe and basal ganglia remote infarcts noted. Advanced cerebral volume loss. Chronic and senescent changes. Lactic acid 1.6, CMP with normal electrolytes, BUN 12, creatinine 0.71, calcium 9.8, hepatic panel normal. UA showed clear, positive nitrite, 1+ leukocyte Estrace, > 20 RBC, 11-20 WBC, urine drug screen negative. PTT 29.8, PT 11.8 Review of Systems Patient denies any headache, no chest pain, abdominal pain, nausea vomiting diarrhea. No fever or chills. All other review of SYMPTOMS reviewed and, unremarkable except as per HPI. Past Medical History Past Medical History: Cancer, Musculoskeletal Disorder, Neurologic Disorder, Seizure Disorder Additional Past Medical History / Comment(s): 2000 Glioblastoma with radiation, then surgery followed by chemotherapy, slight cerebral palsey at -affected motor skills and speech some. History of Any Multi-Drug Resistant Organisms: None Reported Past Surgical History: Orthopedic Surgery Additional Past Surgical History / Comment(s): 2000 Brain surgery, colonoscopy, surgery on femur Past Anesthesia/Blood Transfusion Reactions: No Reported Reaction Past Psychological History: No Psychological Hx Reported Additional Psychological History / Comment(s): Pt resides with her spouse. She has a cane and walker for ambulation. She drives only in the mornings. Smoking Status: Never smoker Past Alcohol Use History: None Reported Past Drug Use History: None Reported - Past Family History Father Family Medical History: Diabetes Mellitus Mother Family Medical History: Diabetes Mellitus Medications and Allergies Home Medications Medication Instructions Recorded Confirmed Type Ergocalciferol (Vitamin D2) 50,000 unit PO Q30D 08/13/16 10/10/21 History [Vitamin D2] Alendronate Sodium [Fosamax] 70 mg PO Q7D 09/29/17 10/10/21 History Aspirin [Adult Low Dose Aspirin EC] 81 mg PO DAILY 09/29/17 10/10/21 History Atorvastatin Calcium [Lipitor] 20 mg PO DAILY 10/10/21 10/10/21 History Baclofen [Lioresal] 10 mg PO Q12H 10/10/21 10/10/21 History Cyanocobalamin [Vitamin B-12] 500 mcg PO DAILY 10/10/21 10/10/21 History Multivitamins, Thera [Multivitamin 1 tab PO DAILY 10/10/21 10/10/21 History (formulary)] levETIRAcetam [Keppra] 500 mg PO Q12HR 10/10/21 10/10/21 History Allergies Allergy/AdvReac Type Severity Reaction Status Date / Time carbamazepine [From Tegretol] Allergy Rash/Hives Verified 10/10/21 19:01 phenytoin [From Dilantin] Allergy Rash/Hives Verified 10/10/21 19:01 Physical Examination - Vital Signs Vital Signs: Vital Signs Temp Pulse Pulse Resp BP BP Pulse Ox 10/11/21 11:51 98.2 F 69 15 102/50 99 10/11/21 07:51 98.3 F 75 20 106/55 98 10/11/21 04:07 98.5 F 79 16 131/70 99 10/10/21 23:55 98.2 F 83 16 136/78 97 10/10/21 22:25 98.9 F 88 17 133/68 97 10/10/21 17:53 99.4 F 89 20 156/77 99 Intake and Output 10/10/21 10/11/21 10/11/21 22:59 06:59 14:59 Output Total 180 1227 Balance -180 -1227 Output: Urine 180 1000 Post Void Residual 227 Other: Voiding Method External Catheter External Catheter Weight 58.967 kg 58.967 kg Patient is a late middle aged female, in no acute distress. Patient is alert awake oriented to time place and person. She knows it is October and the year is 2021 and that she is in [facility]. She states the current president's Jorge Mcgowan, but then was able to tell it was Duong. Patient isn't able to name objects, but has some difficulty with repetition. Her speech is slightly hesitant. Attention, concentration is slightly impaired and fund of knowledge is not able to be assessed because of current mental status. Patient has a slow latency time to answer questions. On cranial examination, pupils are equal, round and reacting to light, visual ayon are full on confrontation, extraocular muscles are intact with no nystagmus. Face is symmetric, tongue protrudes to the midline. Palatal elevation and sensation normal, hearing and shoulder shrug normal, facial s ensation normal. Shoulder shrug normal. On muscle strength testing, there is a right pronator drift. Her strength is (right/left) deltoid 5/5, triceps 5/5, biceps 5/5, manager of finance 5-/5, hip flexion 4/4, a nkle dorsiflexion 5-/5-, but patient is quite spastic in the right foot. She uses an AFO. Deep tendon reflexes are (right/left) biceps 2/1+, brachioradialis 1+/1+, knee 2+/2, plantar is upgoing bilaterally. Sensory to touch is equal with no neglect. Cerebellar function showed no ataxia for [id number] testing. Tone is slightly increased on the right and bulk of muscles normal. Gait not checked. Patient walks with a walker but for long distances she uses wheelchair. On general examination, there is no carotid bruit or murmur, S1-S2 audible. Abdomen is soft nontender. Chest is clear. Peripheral pulses are present. No edema. Results - Laboratory Findings CBC and BMP: 10/11/21 08:40 10/11/21 08:40 Abnormal Lab Findings: Abnormal Labs 10/10/21 10/11/21 18:47 08:40 RBC 4.04 L Creatine Kinase 179 H Assessment and Plan Assessment: * Altered mental status, with decreased verbal output and increased right-sided spasticity. Patient had similar episodes in the past (x2), which were felt to be possible complex partial seizure. * Probable acute UTI * History of left temporal GBM in 1999, status post surgical treatment, radi ation, chemotherapy. Patient has never relapsed, currently in remission. Plan: * Patient's mental status has improved (around 70%), but not back to baseline yet. * We will check urgent EEG, rule out epileptiform activity. * Discussed with patient and family about further increasing dose of Keppra to 750 mg twice a day (currently on 500 mg twice a day). Patient and family agreed to increase the dose pending EEG results. * Patient's current CT head is stable, as compared to MRI from 08/20/2021. I personally reviewed the MRI and CT head and there is no change. No need to repeat the study. * Patient on ceftriaxone for UTI. Await urine cultures. * Dr. Devan Mena will resume neurology service in the morning. * Thank you for the consult. Time with Patient: Greater than 30
[2021-10-11] MEDS ORDERED: levETIRAcetam 250 MG TAB PO STA (13:59)
[2021-10-11 14:04] LABS: Appearance,Urine Clear (Clear); Bilirubin,Urine Negative (Negative); Blood,Urine Negative (Negative); Color,Urine Colorless; Glucose,Urine (UA) Negative (Negative); Ketones,Urine Negative (Negative); Leukocyte Esterase,Urine Trace (Negative); Mucus,Urine Rare /hpf; Nitrite,Urine Negative (Negative); PH, Urine 5.5 (5.0-8.0); Protein,Urine Negative (Negative); RBC,Urine 1 /hpf (0-5); Specific Gravity,Urine 1.005 (1.001-1.035); Squamous Epithelial Cell,Urine 1 /hpf (0-4); Urobilinogen,Urine <2.0 mg/dL (<2.0); WBC,Urine 2 /hpf (0-5)
[2021-10-11] MEDS: FAMOTIDINE 20 MG TAB PO SCH (21:18)
[2021-10-12] MEDS: HEPARIN SODIUM,PORCINE/PF 5,000 UNIT/0.5 ML SYRINGE SQ SCH ×2 (09:58→21:26)
[2021-10-12] MEDS: FAMOTIDINE 20 MG TAB PO SCH ×2 (09:59→21:26)
[2021-10-12] MEDS: ATORVASTATIN 20 MG TAB PO SCH (09:59)
[2021-10-12] MEDS: PANTOPRAZOLE 40 MG/10 ML VIAL IV SCH (09:59)
[2021-10-12] MEDS: ASPIRIN 81 MG PO SCH (09:59)
--- NOTE | 2021-10-12 13:26 | EEG ---
ELECTROENCEPHALOGRAM REPORT DATE OF SERVICE: 10/12/2021 CLINICAL HISTORY: This is a 61-year-old woman with reported history of left temporal glioblastoma multiforme, status post resection, who has altered mental status. The video EEG is obtained to evaluate for seizure epileptiform activity. RELEVANT MEDICATION: Keppra. EEG TYPE: A routine 21-channel EEG is obtained to evaluate for seizure epileptiform activity. DESCRIPTION: Only wakefulness is obtained. During awake state, the background consists of 8 to 8.5 hertz activity that is well modulated. There is no physiological stage II sleep architecture. There is no focal slowing. There is significant left hemispheric myogenic artifact as well as right temporal myogenic artifact. Interictal and ictal is none. ACTIVATION PROCEDURE: Photic stimulation did not evoke a posterior driving response. There is no abnormality during the photic stimulation. Hyperventilation is not performed. CLINICAL INTERPRETATION: This is a normal routine EEG. There is no focal slowing, epileptiform discharge or seizure on the EEG. Clinical correlation is recommended. MMNALLELY / JACKSONN: [id number] / ALEXSANDRA
--- NOTE | 2021-10-12 14:12 | P.PN ---
Subjective Progress Note Date: 10/12/21 I am seeing the patient for the first time during this admission. Please refer to Dr. Orozco's note for further details. It seems there is a concern for possible complex partial seizure. Per nurse no seizure-like activity noticed. She has aphasia that is old. She was notified by family that her condition is improving but uncertain if back to baseline. Objective - Vital Signs Vital signs: Vital Signs Temp 97.4 F L 10/12/21 10:06 Pulse 79 10/12/21 12:00 Resp 18 10/12/21 12:00 BP 124/73 10/12/21 12:00 Pulse Ox 97 10/12/21 12:00 FiO2 Intake & Output 10/11/21 10/12/21 10/12/21 18:59 06:59 18:59 Intake Total 890 360 Output Total 1827 200 Balance -937 -200 360 Intake: Intake, IV Titration 650 Amount Sodium Chloride 0.9% 1, 600 000 ml @ 75 mls/hr IV . [id number] LUL Rx#:[id number] cefTRIAXone 1 gm In 50 Sodium Chloride 0.9% 50 ml @ 100 mls/hr IVPB Q24HR LUL Rx#:[id number] Oral 240 360 Output: Urine 1600 200 Post Void Residual 227 Other: Voiding Method External Catheter External Catheter External Catheter - Exam GENERAL: The patient is sitting in a recliner chair not in acute distress. NEUROLOGICAL: Higher mental function: The patient is awake, alert, oriented to self, place and time. Is slow in responding to questions. Patient is following simple commands. Has expressive aphasia (seems old). Cranial nerves: The pupils are round, equal and reactive to light. Visual ayon: are full to confrontation throughout. Extraocular movement is there is restriction is lateral gaze of the right eye (not sure if new or old). intact no nystagmus is noted. Facial sensation is normal to touch throughout. The facial strength is normal throughout. Hearing is normal bilaterally to hand rub. Tongue is midline and moved [id number] without any difficulty. No dysarthria is noted. Shoulder shrug is normal bilaterally. Motor: The strength is right upper extremity is 4+ has spasticity over the right foot. There is limitation in assessing left lower ankle because of her cooperation. Otherwise normal. . Sensation: Sensation is normal to touch throughout. - Labs CBC & Chem 7: 10/11/21 08:40 10/11/21 08:40 Labs: Microbiology - Last 24 Hours (Table) 10/10/21 18:47 Blood Culture - Preliminary Blood No Growth after 24 hours 10/10/21 18:30 Blood Culture - Preliminary Blood No Growth after 24 hours Assessment and Plan Assessment: * Altered mental status, with decreased verbal output and increased right-sided spasticity. Patient had similar episodes in the past (x2), which were felt to be possible complex partial seizure. * Probable acute UTI * History of left temporal GBM in 1999, status post surgical treatment, radiation, chemotherapy. Patient has never relapsed, currently in remission. Plan: * EEG: Is normal. There is no focal slowing, epileptiform discharges or seizure on the EEG. * Dr. Orozco increased her home dose from 500mg bid to 750mg bid during this admission because of concern of seizure. * Recommend patient to have either ambulatory EEG or Epilepsy monitoring unit if continues to have spell to capture those episodes as outpatient. * On examination patient has restriction of the right lateral gaze and unsure if this is old or new. And unsure if patient is at baseline. * Patient's last MRI of the brain with and without contrast from 08/19/2021 revealed post surgical changes with encephalomalacia left temporal lobe. No pathologic enhancement seen to suggest suggest recurrent tumor. Cerebral atrophy. Moderate white matter signal changes, consistent with microvascular ischemia and lacunar infarcts without change compared to old exam. * Patient to follow-up with neurologist as outpatient within 1-2 weeks as outpatient. If above is back to baseline and no new deficits as stated above, then clear for discharge from neurological perspective. I attempted to contact patient's and daughter via phone and no response. Plan is discussed with her nurse. Devan Mena M.D. Neuro-Hospitalist Time with Patient: Less than 30
[2021-10-12] MEDS: SODIUM CHLORIDE 0.9% 1,000 ML IV SCH (15:56)
[2021-10-13] MEDS: SODIUM CHLORIDE 0.9% 1,000 ML IV SCH ×2 (06:08→16:04)
[2021-10-13] MEDS: PANTOPRAZOLE 40 MG/10 ML VIAL IV SCH (08:19)
[2021-10-13] MEDS: HEPARIN SODIUM,PORCINE/PF 5,000 UNIT/0.5 ML SYRINGE SQ SCH ×2 (08:19→20:12)
[2021-10-13] MEDS: FAMOTIDINE 20 MG TAB PO SCH ×2 (08:20→20:12)
[2021-10-13] MEDS: ASPIRIN 81 MG PO SCH (08:20)
[2021-10-13] MEDS: ATORVASTATIN 20 MG TAB PO SCH (08:20)
--- NOTE | 2021-10-13 10:20 | P.PN ---
Subjective Progress Note Date: 10/12/21 This is a pleasant 61 years old female with past medical history of seizure and osteoporosis hyperlipidemia, 2000 Glioblastoma with radiation, then surgery followed by chemotherapy, mild cerebral palsy at Because of her dysphagia information were obtained with the help of the son and has been at bedside. As per son to Tuesday evening patient son noticed that she has difficulty using her right hand which keep it in the office and also she has difficulty finding words more than usual, next day which was yesterday noticed patient was taken intubated in the morning which is unusual for her and her right side was still weak and her dysphagia was still bed with no improvement so he got concerned and brought her to the hospital first at [facility] before the transfer to this facility. as per son patient has history of stroke and she has mild degree of weakness and worked finding difficulty but it was worse over the last 2 days. however they think both dysphagia and right arm and leg weakness looks better today also she was complaining of from mild dysuria yesterday patient reports headache for last 2 days about 60/10, nonspecific with no numbness or dizziness. she vomited once yesterday but she has no chest pain or dyspnea, no abdominal pain or diarrhea. no history of smoking, alcohol or illicit drugs pt went to [facility] and tried to get transfered here but stated they could not get a direct admit so they told family to bring her here. Pts son states she has UTI and as far as they know the ct was negative. Pt also has newer onset seizures but has not had any recently. pts son states he started to notice patient was unable to communicate as well as normal and also was not using her right hand as much as normal. Pt is slower to respond and has limited responses per son. Vitals are stable. Creatinine kinase is 179, troponin are negative less than 0.012. On reviewing the records from [facility] Troponin is 0.01. Salicylate less than 5, alcohol less than 10, magnesium 2.1, WBCs 10.2, hemoglobin 14.1, platelet 245 Chest x-ray report showing prominent interstitial markings bilaterally which are nonspecific and could represent fibrotic change. However no prior study are available for comparison. Alternatively these finding culture present interstitial pneumonia per radiologist CT of the head without contrast showing no acute intracranial hemorrhage, left temporal lobe and basal ganglia remote infarcts noted and advanced cerebral volume loss, with chronic changes Lactic acid 1.6. Sodium 137, potassium 4.6, glucose 110, creatinine 0.7, calcium 9.8 AST 20, ALT 17, total bilirubin 0.6 Urinalysis showing yellow clear urine with positive nitrates and WBCs 11-20, actually patient received 1 dose of ceftriaxone and [facility] Urine drug screen is negative INR is 1.0 10/12/2021 Patient is currently sitting in the chair comfortably. Awake alert and oriented. Feels weak. No complaints of chest pain or shortness of breath. No episodes of seizures overnight. Cough or sputum production. No nausea vomiting or abdominal pain or diarrhea. Denied any abdominal pain. Urine culture is pending. Laboratory data reviewed. Neurology is on board. Current medications reviewed. Objective - Vital Signs Vital signs: Vital Signs Temp 97.4 F L 10/12/21 10:06 Pulse 79 10/12/21 12:00 Resp 18 10/12/21 12:00 BP 124/73 10/12/21 12:00 Pulse Ox 97 10/12/21 12:00 FiO2 Intake & Output 10/11/21 10/12/21 10/12/21 18:59 06:59 18:59 Intake Total 890 360 Output Total 1827 200 Balance -937 -200 360 Intake: Intake, IV Titration 650 Amount Sodium Chloride 0.9% 1, 600 000 ml @ 75 mls/hr IV . [id number] [facility] Rx#:[id number] cefTRIAXone 1 gm In 50 Sodium Chloride 0.9% 50 ml @ 100 mls/hr IVPB Q24HR [facility] Rx#:[id number] Oral 240 360 Output: Urine 1600 200 Post Void Residual 227 Other: Voiding Method External Catheter External Catheter External Catheter - Exam GENERAL: The patient is alert and oriented x3, not in any acute distress. Well developed, well nourished. HEENT: Pupils are round and equally reacting to light. EOMI. No scleral icterus. No conjunctival pallor. Normocephalic, atraumatic. No pharyngeal erythema. No thyromegaly. CARDIOVASCULAR: S1 and S2 present. No murmurs, rubs, or gallops. PULMONARY: Chest is clear to auscultation, no wheezing or crackles. ABDOMEN: Soft, nontender, nondistended, normoactive bowel sounds. No palpable organomegaly. MUSCULOSKELETAL: No joint swelling or deformity. EXTREMITIES: No cyanosis, clubbing, or pedal edema. -NEUROLOGICAL: Right facial droop, right hemiparesis with right upper and lower extremity weaker than the left side. Meningeal signs are absent SKIN: No rashes. No petechiae - Labs CBC & Chem 7: 10/11/21 08:40 10/11/21 08:40 Labs: Microbiology - Last 24 Hours (Table) 10/10/21 18:47 Blood Culture - Preliminary Blood No Growth after 24 hours 10/10/21 18:30 Blood Culture - Preliminary Blood No Growth after 24 hours Assessment and Plan Assessment: Acute urinary tract infection Worsening right hemiparesis/spasticity and expressive dysphasia could be secondary to her UTI. She had a similar episode previously and felt to be possible complex partial seizures. History of seizure disorder. 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 Status post surgical resection DVT prophylaxis. Plan: This is a pleasant 61 years old female who presents with UTI, AMS Continue gentle hydration Repeat urinalysis is negative for infection. Patient is being Continued on Ceftriaxone. Follow-up final urine culture report. Neurology is on board. No further episodes of seizures overnight. Continue with aspirin Hold baclofen Continue with Keppra. Increase the dose to 750 twice a day. Recommended outpatient neurology clinic in 1-2 weeks. Labs and medication were reviewed. Monitor lytes and vitals. DVT and GI prophylaxis. DVT prophylaxis: Subcutaneous heparin GI Prophylaxis: Pepcid PT/OT: And swallow evaluation` Prognosis is guarded Time with Patient: Greater than 30
[2021-10-13 10:44] LABS: Basophils % (A) 1 %; Eosinophils # (A) 0.2 k/uL (0-0.7); Eosinophils % (A) 3 %; HCT 38.8 % (34.0-46.0); HGB 12.7 gm/dL (11.4-16.0); Lymphocytes # (A) 1.7 k/uL (1.0-4.8); Lymphocytes % (A) 30 %; MCHC 32.7 g/dL (31.0-37.0); Mean Platelet Volume 8.3; Monocytes # (A) 0.4 k/uL (0-1.0); Monocytes % (A) 8 %; Neutrophils # (A) 3.2 k/uL (1.3-7.7); Neutrophils % (A) 56 %; Platelet Count 211 k/uL (150-450); RBC 3.96 m/uL (3.80-5.40); WBC 5.6 k/uL (3.8-10.6)
[2021-10-13 11:23] LABS: African American GFR (CKD) >90 (>60 ml/min/1.73 sqM); Anion Gap 7 mmol/L; Blood Urea Nitrogen 14 mg/dL (7-17); Calcium 8.6 mg/dL (8.4-10.2); Carbon Dioxide 24 mmol/L (22-30); Chloride 109 mmol/L (98-107); Glucose 95 mg/dL (74-99); Non-African American GFR(CKD) >90 (>60 ml/min/1.73 sqM); Sodium 140 mmol/L (137-145)
[2021-10-13 11:28] LABS: Potassium 4.6 mmol/L (3.5-5.1)
[2021-10-14] MEDS: SODIUM CHLORIDE 0.9% 1,000 ML IV SCH (00:11)
[2021-10-14 04:09] VITALS: RESP 18
[2021-10-14] MEDS ORDERED: PANTOPRAZOLE 40 MG TABLET PO SCH (07:30)
[2021-10-14 08:47] VITALS: TEMP 98.4
[2021-10-14] MEDS: ATORVASTATIN 20 MG TAB PO SCH (09:14)
[2021-10-14] MEDS: FAMOTIDINE 20 MG TAB PO SCH (09:14)
[2021-10-14] MEDS: ASPIRIN 81 MG PO SCH (09:14)
[2021-10-14] MEDS: HEPARIN SODIUM,PORCINE/PF 5,000 UNIT/0.5 ML SYRINGE SQ SCH (09:15)
--- NOTE | 2021-10-14 10:59 | P.PN ---
Subjective Progress Note Date: 10/14/21 This is a pleasant 61 years old female with past medical history of seizure and osteoporosis hyperlipidemia, 2000 Glioblastoma with radiation, then surgery followed by chemotherapy, mild cerebral palsy at Because of her dysphagia information were obtained with the help of the son and has been at bedside. As per son to Tuesday evening patient son noticed that she has difficulty using her right hand which keep it in the office and also she has difficulty finding words more than usual, next day which was yesterday noticed patient was taken intubated in the morning which is unusual for her and her right side was still weak and her dysphagia was still bed with no improvement so he got concerned and brought her to the hospital first at [facility] before the transfer to this facility. as per son patient has history of stroke and she has mild degree of weakness and worked finding difficulty but it was worse over the last 2 days. however they think both dysphagia and right arm and leg weakness looks better today also she was complaining of from mild dysuria yesterday patient reports headache for last 2 days about 60/10, nonspecific with no numbness or dizziness. she vomited once yesterday but she has no chest pain or dyspnea, no abdominal pain or diarrhea. no history of smoking, alcohol or illicit drugs pt went to [facility] and tried to get transfered here but stated they could not get a direct admit so they told family to bring her here. Pts son states she has UTI and as far as they know the ct was negative. Pt also has newer onset seizures but has not had any recently. pts son states he started to notice patient was unable to communicate as well as normal and also was not using her right hand as much as normal. Pt is slower to respond and has limited responses per son. Vitals are stable. Creatinine kinase is 179, troponin are negative less than 0.012. On reviewing the records from [facility] Troponin is 0.01. Salicylate less than 5, alcohol less than 10, magnesium 2.1, WBCs 10.2, hemoglobin 14.1, platelet 245 Chest x-ray report showing prominent interstitial markings bilaterally which are nonspecific and could represent fibrotic change. However no prior study are available for comparison. Alternatively these finding culture present interstitial pneumonia per radiologist CT of the head without contrast showing no acute intracranial hemorrhage, left temporal lobe and basal ganglia remote infarcts noted and advanced cerebral volume loss, with chronic changes Lactic acid 1.6. Sodium 137, potassium 4.6, glucose 110, creatinine 0.7, calcium 9.8 AST 20, ALT 17, total bilirubin 0.6 Urinalysis showing yellow clear urine with positive nitrates and WBCs 11-20, actually patient received 1 dose of ceftriaxone and [facility] Urine drug screen is negative INR is 1.0 10/12/2021 Patient is currently sitting in the chair comfortably. Awake alert and oriented. Feels weak. No complaints of chest pain or shortness of breath. No episodes of seizures overnight. Cough or sputum production. No nausea vomiting or abdominal pain or diarrhea. Denied any abdominal pain. Urine culture is pending. Laboratory data reviewed. Neurology is on board. 10/13/2021 Patient is currently resting. Awake alert and oriented. Patient does have right-sided weakness. No complaints of chest pain or shortness of breath. No episodes of seizures overnight. MRI was ordered as per neurology recommendations. Currently being continued on Keppra 750 mg twice a day. Patient has been afebrile. On antibiotics for possible urinary tract infection. No other acute overnight issues. Current medications reviewed. Objective - Vital Signs Vital signs: Vital Signs Temp 98.4 F 10/14/21 08:00 Pulse 74 10/14/21 08:00 Resp 18 10/14/21 08:00 BP 120/69 10/14/21 08:00 Pulse Ox 94 L 10/14/21 08:00 FiO2 Intake & Output 10/13/21 10/14/21 10/14/21 18:59 06:59 18:59 Intake Total 240 120 Output Total 1600 750 Balance -1360 -630 Intake: Oral 240 120 Output: Urine 1600 750 Other: Voiding Method External Catheter External Catheter - Exam GENERAL: The patient is alert and oriented x3, not in any acute distress. Well developed, well nourished. HEENT: Pupils are round and equally reacting to light. EOMI. No scleral icterus. No conjunctival pallor. Normocephalic, atraumatic. No pharyngeal erythema. No thyromegaly. CARDIOVASCULAR: S1 and S2 present. No murmurs, rubs, or gallops. PULMONARY: Chest is clear to auscultation, no wheezing or crackles. ABDOMEN: Soft, nontender, nondistended, normoactive bowel sounds. No palpable organomegaly. MUSCULOSKELETAL: No joint swelling or deformity. EXTREMITIES: No cyanosis, clubbing, or pedal edema. -NEUROLOGICAL: Right facial droop, right hemiparesis with right upper and lower extremity weaker than the left side. Meningeal signs are absent SKIN: No rashes. No petechiae - Labs CBC & Chem 7: 10/13/21 10:23 10/13/21 10:23 Labs: Abnormal Lab Results - Last 24 Hours (Table) 10/13/21 Range/Units 10:23 Chloride 109 H (98-107) mmol/L Microbiology - Last 24 Hours (Table) 10/10/21 18:30 Blood Culture - Preliminary Blood No Growth after 72 hours 10/10/21 18:47 Blood Culture - Preliminary Blood No Growth after 72 hours Assessment and Plan Assessment: Acute urinary tract infection Worsening right hemiparesis/spasticity and expressive dysphasia could be secondary to her UTI. She had a similar episode previously and felt to be possible complex partial seizures. History of seizure disorder. 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 Status post surgical resection DVT prophylaxis. Plan: This is a pleasant 61 years old female who presents with UTI, AMS Repeat urinalysis is negative for infection. Patient is being Continued on Ceftriaxone. Neurology is on board. No further episodes of seizures overnight. Continue with aspirin Hold baclofen Continue with Keppra. Increase the dose to 750 twice a day. Recommended outpatient neurology clinic in 1-2 weeks. Patient is tolerating oral diet. Labs and medication were reviewed. Monitor lytes and vitals. DVT and GI prophylaxis. DVT prophylaxis: Subcutaneous heparin GI Prophylaxis: Pepcid PT/OT: And swallow evaluation` Prognosis is guarded Time with Patient: Greater than 30
[2021-10-14 12:43] VITALS: BP 117/69; PULSE 78
--- NOTE | 2021-10-14 14:55 | P.PN ---
Subjective Progress Note Date: 10/14/21 I was updated by the nurse yesterday that family felt her right visual defect is new and changed mind and wanted to pursue with MRI Brain as inpatient rather outpatient. Objective - Vital Signs Vital signs: Vital Signs Temp 98.4 F 10/14/21 08:00 Pulse 78 10/14/21 12:00 Resp 18 10/14/21 12:00 BP 117/69 10/14/21 12:00 Pulse Ox 97 10/14/21 12:00 FiO2 Intake & Output 10/13/21 10/14/21 10/14/21 18:59 06:59 18:59 Intake Total 240 120 Output Total 1600 750 Balance -1360 -630 Intake: Oral 240 120 Output: Urine 1600 750 Other: Voiding Method External Catheter External Catheter External Catheter - Exam GENERAL: The patient is sitting in a recliner chair not in acute distress. NEUROLOGICAL: Higher mental function: The patient is awake, alert, oriented to self, place and time. Is slow in responding to questions. Patient is following simple commands. Has expressive aphasia (seems old). Cranial nerves: The pupils are round, equal and reactive to light. Visual ayon: are full to confrontation throughout. Extraocular movement is there is restriction is lateral gaze of the right eye (not sure if new or old). intact no nystagmus is noted. Facial sensation is normal to touch throughout. The facial strength is right nasolabial flatenning. Minimal dysarthria is noted. Shoulder shrug is normal bilaterally. Motor: The strength is right upper extremity is 4+ has spasticity over the right foot. There is limitation in assessing left lower ankle because of her cooperation. Otherwise normal. . Sensation: Sensation is normal to touch throughout. - Labs CBC & Chem 7: 10/13/21 10:23 10/13/21 10:23 Labs: Microbiology - Last 24 Hours (Table) 10/10/21 18:30 Blood Culture - Preliminary Blood No Growth after 72 hours 10/10/21 18:47 Blood Culture - Preliminary Blood No Growth after 72 hours Assessment and Plan Assessment: * Altered mental status, with decreased verbal output and increased right-sided spasticity. Patient had similar episodes in the past (x2), which were felt to be possible complex partial seizure. * Right lateral gaze defect--rule out stroke * Probable acute UTI * History of left temporal GBM in 1999, status post surgical treatment, radiation, chemotherapy. Patient has never relapsed, currently in remission. Plan: * EEG: Is normal. There is no focal slowing, epileptiform discharges or seizure on the EEG. * Dr. Orozco increased her home dose from 500mg bid to 750mg bid during this admission because of concern of seizure. * Recommend patient to have either ambulatory EEG or Epilepsy monitoring unit if continues to have spell to capture those episodes as outpatient. * On examination patient has restriction of the right lateral gaze which per family is new. Also on examination has right nasolabial flattening and mild dysarthria. Pending MRI Brain to rule out stroke. * Patient's last MRI of the brain with and without contrast from 08/19/2021 revealed post surgical changes with encephalomalacia left temporal lobe. No pathologic enhancement seen to suggest suggest recurrent tumor. Cerebral atrophy. Moderate white matter signal changes, consistent with microvascular ischemia and lacunar infarcts without change compared to old exam. * Patient to follow-up with neurologist as outpatient within 1-2 weeks as outpatient. Plan is discussed with patient and her nurse. Devan Mena M.D. Neuro-Hospitalist Time with Patient: Less than 30
--- NOTE | 2021-10-14 18:02 | MR ---
EXAMINATION TYPE: MR brain wo con DATE OF EXAM: 10/14/2021 COMPARISON: 08/19/2021 HISTORY: stroke. History of brain surgery Multiplanar multiecho imaging of the brain without contrast. There is enlargement of the left lateral ventricle. Diffusion images show no sign of an acute infarct . There is no mass effect nor midline shift. There is some coalescent increased signal in the periven tricular white matter. There is some asymmetric enlargement of the left lateral ventricle compared to the right. There is thinning of the corpus callosum. Sella turcica is intact. No evidence of orbital mass. IMPRESSION: Cerebral atrophy and hydrocephalus. Extensive white matter signal changes probably related to microva scular ischemia. Demyelinating disease not excluded. No acute cortical infarct. No change compared to the old exam.
== END 2021-10-14 19:19 | disposition home health service (06) | DRG 690 ==
LOC: EC 17:51 → 4SSUR 18:23 → 3SCARD 21:42
PROVIDERS: ADMIT Hospitalist; ATTEND Hospitalist
DX: N39.0 Urinary tract infection, site not specified (principal); G81.91 Hemiplegia, unspecified affecting right dominant side; G40.209 Localization-related (focal) (partial) symptomatic epilepsy and epileptic syndromes with complex partial seizures, not intractable, without status epilepticus; R47.01 Aphasia; R47.02 Dysphasia; E78.5 Hyperlipidemia, unspecified; Z20.822 Contact with and (suspected) exposure to COVID-19; G80.9 Cerebral palsy, unspecified; M81.0 Age-related osteoporosis without current pathological fracture; R13.10 Dysphagia, unspecified; H54.7 Unspecified visual loss; Z79.82 Long term (current) use of aspirin; Z79.83 Long term (current) use of bisphosphonates; Z79.899 Other long term (current) drug therapy; Z92.3 Personal history of irradiation; Z92.21 Personal history of antineoplastic chemotherapy; Z87.440 Personal history of urinary (tract) infections; Z85.841 Personal history of malignant neoplasm of brain; Z83.3 Family history of diabetes mellitus
CPT/HCPCS: 70551; 71045; 80048; 80053; 81001; 82550; 84484; 85025; 87040; 87635; 95816; 99285

== ENCOUNTER → 2022-02-02 | Outpatient (CLI) | payer BC ==
--- NOTE | 2022-02-02 09:56 | XR ---
EXAMINATION TYPE: XR foot complete LT DATE OF EXAM: 02/02/2022 CLINICAL HISTORY: pain TECHNIQUE: Frontal, lateral and oblique images of the left foot are obtained. COMPARISON: None. FINDINGS: There is no acute fracture/dislocation evident. The joint spaces appear within normal yoder its. The overlying soft tissue appears unremarkable. IMPRESSION: There is no acute fracture or dislocation. ICD 10 NO FRACTURE, INITIAL EVALUATION
== END | disposition home or self-care (01) ==
LOC: RADXRMAIN 09:13
PROVIDERS: ATTEND Family Medicine
DX: M79.672 Pain in left foot (principal)

== ENCOUNTER → 2022-04-09 | Outpatient (CLI) | payer BC ==
[2022-04-09 18:43] LABS: Basophils # (A) 0.05 X 10*3/uL (0.00-0.10); Basophils % (A) 0.7 %; Eosinophils # (A) 0.17 X 10*3/uL (0.04-0.35); Eosinophils % (A) 2.5 %; HCT 41.8 % (37.2-46.3); HGB 13.1 g/dL (12.0-15.0); Immature Grans, Automated 0.3 %; Lymphocytes # (A) 1.92 X 10*3/uL (0.90-5.00); Lymphocytes % (A) 28.3 %; MCH 30.6 pg (27.0-32.0); MCHC 31.3 g/dL (32.0-37.0); MCV 97.7 fL (80.0-97.0); Mean Platelet Volume 11.1 fL (9.5-12.2); Monocytes # (A) 1.09 X 10*3/uL (0.20-1.00); Monocytes % (A) 16.1 %; NRBC Per 100 WBC 0 /100 WBCS (0.0-0.0); Neutrophils # (A) 3.54 X 10*3/uL (1.80-7.70); Neutrophils % (A) 52.1 %; Platelet Count 234 X 10*3/uL (140-440); RBC 4.28 X 10*6/uL (4.10-5.20); RDW 12.7 % (11.5-14.5); WBC 6.79 X 10*3/uL (4.50-10.00)
[2022-04-09 19:03] LABS: ALT 17 U/L (8-44); AST 18 U/L (13-35); African American GFR (CKD) 115.3 (60.0-200.0); Albumin 4.1 g/dL (3.8-4.9); Albumin/Globulin Ratio 1.71 (1.60-3.17); Alkaline Phosphatase 100 U/L (41-126); BUN/Creat Ratio 22.84 Ratio (12.00-20.00); Blood Urea Nitrogen 12.7 mg/dL (9.0-27.0); Calcium 9.1 mg/dL (8.7-10.3); Carbon Dioxide 24.6 mmol/L (20.0-27.5); Chloride 105 mmol/L (96-109); Chol/HDL Ratio 4.21 Ratio; Globulin 2.4 g/dL (1.6-3.3); Glucose 88 mg/dL (70-110); LDL Cholesterol,Calculated 83.3 mg/dL (0.0-131.0); Non-African American GFR(CKD) 99.5 (60.0-200.0); Potassium 4.3 mmol/L (3.5-5.5); Sodium 138 mmol/L (135-145); Total Protein 6.5 g/dL (6.2-8.2)
== END | disposition home or self-care (01) ==
LOC: LABWHC1 11:07
PROVIDERS: ATTEND Family Medicine
DX: E78.2 Mixed hyperlipidemia (principal); E55.9 Vitamin D deficiency, unspecified; M81.0 Age-related osteoporosis without current pathological fracture; G40.89 Other seizures
CPT/HCPCS: 36415; 80053; 80061; 82306; 85025

== ENCOUNTER → 2022-08-25 | Outpatient (CLI) | payer BC ==
--- NOTE | 2022-08-26 08:46 | MR ---
EXAMINATION TYPE: MR brain wo/w con DATE OF EXAM: 08/25/2022 COMPARISON: 10/14/2021 HISTORY: Follow-up comparison post Neuroblastoma resection. CONTRAST: Performed utilizing 6.5 mL intravenous Gadavist gadolinium contrast. TECHNIQUE: Multiplanar, multiecho imaging on a 3.0 Tasia magnet is performed through the brain. Stud y is performed within 24 hours of arrival to the hospital. There is resection of the anterior left temporal lobe. Left middle cranial fossa appears empty. The craniovertebral junction is normal. The pituitary is normal. Diffusion-weighted imaging is performed. No abnormal hyperintensity is present to suggest an acute i ntracranial infarct or acute ischemic change. There is mild increased signal through the periventricular white matter. This is greater on the right and may reflect some post treatment changes. Ex vacuo effect is evident on the left lateral ventricl e. No temporal horn dilatation is identified. No abnormal enhancement is identified. Globally, Ventricles and sulci are somewhat prominent for the patient age. Ex vacuo effect on the left lateral ventricle can be compatible with the patient's surgery. IMPRESSIONS: 1. Stable postsurgical changes left middle cranial fossa. No suspicious changes to suggest recurrence . 2. Mild white matter changes can be related to microvascular ischemic change and post treatment ramos es.
== END | disposition home or self-care (01) ==
LOC: RADMRIMAIN 11:08
PROVIDERS: ATTEND Internal Medicine Hematology & Oncology
DX: C71.9 Malignant neoplasm of brain, unspecified (principal); R90.82 White matter disease, unspecified
CPT/HCPCS: 70553; A9585

== ENCOUNTER → 2022-09-16 | Outpatient (CLI) | payer BC ==
--- NOTE | 2022-09-17 08:57 | MM ---
Reason for Exam: Screening (asymptomatic). Last mammogram was performed 1 year(s) and 6 month(s) ago. Patient History: Menarche at age 10. First Full-Term at age 21. Postmenopausal. Other cancer, age 39. Previous chemotherapy at age 39. Risk Values: Hafsa 5 year model risk: 1.4%. NCI Lifetime model risk: 5.8%. Prior Study Comparison: 02/21/2019 Bilateral Screening Mammogram, [facility]. 03/26/2020 Bilateral Screening Mammogram, [facility]. 03/30/2021 Bilateral Screening Mammogram, [facility]. Tissue Density: The breast tissue is heterogeneously dense. This may lower the sensitivity of mammography. Findings: Analyzed By CAD. There is no suspicious group of microcalcifications or new suspicious mass in either breast. Overall Assessment: Negative, BI-RAD 1 Management: Screening Mammogram of both breasts in 1 year. A clinical breast exam by your physician is recommended on an annual basis and results should be correlated with mammographic findings. Electronically signed and approved by: Too Good D.O.
== END | disposition home or self-care (01) ==
LOC: RADMAMWWP 09:33
PROVIDERS: ATTEND Internal Medicine Hematology & Oncology
DX: Z12.31 Encounter for screening mammogram for malignant neoplasm of breast (principal); Z78.0 Asymptomatic menopausal state
CPT/HCPCS: 77067

== ENCOUNTER → 2022-10-28 | Outpatient (CLI) | payer BC ==
--- NOTE | 2022-10-28 19:51 | XR ---
EXAMINATION TYPE: XR AP view pelvis and 2 views bilateral hip DATE OF EXAM: 10/28/2022 COMPARISON: NONE HISTORY: 62-year-old female M25.561 pain rt knee M79.605 pain left leg M79.604 FINDINGS: Percutaneous 3 pins across the left femoral neck. Previous minimally offset and mildly foreshortened femoral neck fracture. There is mild degenerative spurring at the left hip but with relative preserva tion of joint space on both sides. Left-sided pelvic phleboliths. SI joints appear symmetric and inta ct as does the pubic symphysis. IMPRESSION: Previous percutaneous pinning across the patient's minimally offset and foreshortened, he aled left femoral neck fracture. Very mild early degenerative spurring at the left hip. No acute osse ous abnormality seen.
--- NOTE | 2022-10-28 19:54 | XR ---
EXAMINATION TYPE: XR knee standing AP BILAT, XR knee complete 3 views bilateral DATE OF EXAM: 10/28/2022 COMPARISON: NONE HISTORY: 62-year-old female M2 5.561, M79.605, M79.604. TECHNIQUE: AP weightbearing view both knees along with AP, oblique, and lateral views bilateral knees . FINDINGS: On the weightbearing view, bicompartmental joint space is relatively maintained. On both sides, there is mild degenerative spurring in the patellofemoral compartments. Trace knee brett nt effusion on both sides. Extensor mechanisms appear intact. No acute fracture, subluxation, dislocation seen on either side. IMPRESSION: Mild degenerative spurring in the bilateral patellofemoral compartments. Tricompartmental joint space s appear relatively maintained on the weightbearing view. Trace knee joint effusions are nonspecific. No acute osseous abnormalities seen.
== END | disposition home or self-care (01) ==
LOC: RADXRMAIN 13:41
PROVIDERS: ATTEND Family Medicine
DX: Z00.01 Encounter for general adult medical examination with abnormal findings (principal); M17.0 Bilateral primary osteoarthritis of knee; M16.12 Unilateral primary osteoarthritis, left hip; M25.461 Effusion, right knee; M25.462 Effusion, left knee; M79.604 Pain in right leg; M79.605 Pain in left leg
CPT/HCPCS: 73521; 73565

== ENCOUNTER → 2022-10-29 | Outpatient (CLI) | payer BC ==
[2022-10-29 15:46] LABS: Basophils # (A) 0.04 X 10*3/uL (0.00-0.10); Basophils % (A) 0.8 %; Eosinophils # (A) 0.12 X 10*3/uL (0.04-0.35); Eosinophils % (A) 2.3 %; HCT 40.5 % (37.2-46.3); HGB 13.1 d/dL (12.0-15.0); Lymphocytes # (A) 2.13 X 10*3/uL (0.90-5.00); Lymphocytes % (A) 40.9 %; MCH 31.3 pg (27.0-32.0); MCHC 32.3 d/dL (32.0-37.0); MCV 96.9 FL (80.0-97.0); Mean Platelet Volume 11.4 FL (9.5-12.2); Monocytes # (A) 0.47 X 10*3/uL (0.20-1.00); NRBC Per 100 WBC 0 X 10*3/uL (0.00-0.01); Neutrophils # (A) 2.44 X 10*3/uL (1.80-7.70); Neutrophils % (A) 46.8 %; Platelet Count 206 X 10*3/uL (140-440); RBC 4.18 X 10*6/uL (4.10-5.20); RDW 12.8 % (11.5-14.5); WBC 5.21 X 10*3/uL (4.50-10.00)
[2022-10-29 16:06] LABS: ALT 22 U/L (8-44); AST 22 U/L (13-35); Albumin 4.3 d/dL (3.8-4.9); Albumin/Globulin Ratio 1.87 Ratio (1.60-3.17); Alkaline Phosphatase 95 U/L (41-126); BUN/Creat Ratio 24.71 Ratio (12.00-20.00); Blood Urea Nitrogen 17.3 mg/dL (9.0-27.0); Calcium 9.6 mg/dL (8.7-10.3); Carbon Dioxide 26.9 mmol/L (21.6-31.8); Chloride 105 mmol/L (96-109); Chol/HDL Ratio 3.36 Ratio; Globulin 2.3 d/dL (1.6-3.3); Glucose 82 mg/dL (70-110); LDL Cholesterol,Calculated 77.5 mg/dL (0.0-131.0); Potassium 4.1 mmol/L (3.5-5.5); Sodium 141 mmol/L (135-145); Total Bilirubin 0.8 mg/dL (0.3-1.2); Total Protein 6.6 d/dL (6.2-8.2)
== END | disposition home or self-care (01) ==
LOC: LABWHC1 08:02
PROVIDERS: ATTEND Family Medicine
DX: Z00.01 Encounter for general adult medical examination with abnormal findings (principal); Z13.29 Encounter for screening for other suspected endocrine disorder; E78.2 Mixed hyperlipidemia; E55.9 Vitamin D deficiency, unspecified; M81.0 Age-related osteoporosis without current pathological fracture
CPT/HCPCS: 36415; 80053; 80061; 82306; 84443; 85025

== ENCOUNTER → 2023-08-24 | Outpatient (CLI) | payer MEDICARE, BC ==
--- NOTE | 2023-08-24 12:31 | MR ---
EXAMINATION TYPE: MR brain wo con DATE OF EXAM: 08/24/2023 12:03 PM CLINICAL INDICATION:Female, 63 years old with history of C71.9 MRI BRAIN ASTROCYTOMA; PHH, Brain astr ocytoma, f/u COMPARISON: Multiple MRIs dating back to 2013. Most recent 08/25/2022.. TECHNIQUE: Multi planar, multi sequence imaging was performed through the brain including: T1, T2, In version recovery, Diffusion weighted imaging, and gradient echo imaging. No gadolinium was given. FINDINGS: Stable postsurgical changes in the left temporal lobe with expected dilatation of the left lateral ventricle. No IV contrast was able to be utilized due to IV access which limits evaluation. The aguilera-white junctions, ventricular system, basal cisterns appear unremarkable. Scattered foci of high T2 signal intensity are seen within the periventricular white matter. Midline structures show n o abnormality. Diffusion-weighted imaging shows no evidence of restricted diffusion. Scattered suscep tibility foci throughout the brain. The bone marrow signal is postsurgical changes left calvarium. Paranasal sinuses and mastoid air cells: No significant paranasal sinus disease. Visualized orbits: Orbital contents are intact. IMPRESSION: 1. Stable postsurgical changes to the left middle lobe. No evidence for intracranial mass or acute s ubacute infarct. Limited evaluation without IV contrast due to inability to get IV access. 2. Nonspecific white matter changes are not significantly changed. 3. Scattered susceptibility blooming artifact created for microhemorrhage versus cerebral amyloid an giopathy.
== END | disposition home or self-care (01) ==
LOC: RADMRIMAIN 10:07
PROVIDERS: ATTEND Internal Medicine Hematology & Oncology
DX: C71.9 Malignant neoplasm of brain, unspecified (principal); R90.82 White matter disease, unspecified
CPT/HCPCS: 70551

== ENCOUNTER → 2024-08-28 | Outpatient (CLI) | payer MEDICARE, BC ==
--- NOTE | 2024-08-28 13:02 | MR ---
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 Tumor removal September 1999. COMPARISON: Multiple MRI brain with most recent 08/24/2023, CT brain 03/15/2018. TECHNIQUE: Multi planar, multi sequence imaging was performed through the brain. The patient was then given 6 cc of Gadobutrol intravenously and multi planar, T1 fat-saturation images were obtained. FINDINGS: Stable postsurgical changes within the left temporal lobe. The aguilera-white junctions and basal cistern s appear unremarkable. Similar expected dilatation of the left lateral ventricle from ex vacuo dilata tion. Diffusion-weighted imaging shows no evidence of restricted diffusion to suggest acute/subacute infarct. Intracranial arterial flow voids are maintained. Midline structures show no abnormality. Sim ilar patchy and confluent regions of high T2/FLAIR signal intensity are seen within the supratentoria l periventricular white matter. The susceptibility weighted images demonstrate similar scattered foci of susceptibility blooming artifact throughout the brain. After administration of gadolinium, no abn ormal enhancement is seen. Post surgical changes in the left calvarium. Remaining bone marrow signal is unremarkable. The unrema rkable. Mild mucosal thickening of the ethmoid sinuses. IMPRESSION: 1. Stable postsurgical changes to the left temporal lobe. No evidence for intracranial mass or acute /subacute infarct. No abnormal contrast enhancement. 2. Similar moderate nonspecific white matter changes likely related to chronic small vessel ischemic disease. 3. Similar scattered susceptibility blooming artifact from prior MR. Etiologies include prior microh emorrhage versus cerebral amyloid angiopathy. [facility], , 08/28/2024 12:59 PM
== END | disposition home or self-care (01) ==
LOC: RADMRIMAIN 11:37
PROVIDERS: ATTEND Internal Medicine Hematology & Oncology
DX: C71.9 Malignant neoplasm of brain, unspecified (principal); R90.82 White matter disease, unspecified; Z98.890 Other specified postprocedural states
CPT/HCPCS: 70553; A9585